=== PATIENT | male | born 1940 | race Caucasian/White ===

== ENCOUNTER → 2018-08-04 | Outpatient (REF) | payer MEDICARE, MEDICAID ==
[2018-08-04 17:17] LABS: ALBUMIN 4.3 GM/DL (3.2-5.2); ALBUMIN/GLOBULIN RATIO 1.43 (1.00-1.93); ALKALINE PHOSPHATASE 57 U/L (45-117); ALT/SGPT 29 U/L (12-78); ANION GAP 8 MEQ/L (8-16); AST/SGOT 21 U/L (7-37); BILIRUBIN,TOTAL 0.9 MG/DL (0.2-1.0); BLOOD UREA NITROGEN 24 MG/DL (7-18); CARBON DIOXIDE LEVEL 25 MEQ/L (21-32); CHLORIDE LEVEL 105 MEQ/L (98-107); CHOLESTEROL LEVEL 104 MG/DL (<200); CREATININE FOR GFR 1.87 MG/DL (0.70-1.30); GLOMERULAR FILTRATION RATE 37.4 (>42); GLUCOSE, FASTING 238 MG/DL (70-100); HDL CHOLESTEROL 37 MG/DL (>40); LDL CHOLESTEROL 38 MG/DL (<100); NON-HDL-C 67 MG/DL; POTASSIUM SERUM 4.4 MEQ/L (3.5-5.1); SODIUM LEVEL 138 MEQ/L (136-145); TOTAL PROTEIN 7.3 GM/DL (6.4-8.2); TRIGLYCERIDES LEVEL 143 MG/DL (<150)
[2018-08-04 17:34] LABS: ESTIMATED AVERAGE GLUCOSE 128 MG/DL (60-110); HEMOGLOBIN A1c 6.1 %
[2018-08-04 18:23] LABS: TOTAL 25(OH) VITAMIN D 25.9 NG/ML (30.0-100.0); VITAMIN B12 LEVEL 440 PG/ML (247-911)
[2018-08-04 18:34] LABS: MALB URINE SIEMENS 48.2 MG/L; MAU/CREAT RATIO 30.5 MCG/MG (0.0-30.0)
[2018-08-05 08:17] LABS: MAGNESIUM LEVEL 1.3 MG/DL (1.8-2.4)
== END ==
LOC: M SFHCCAPE 12:03
DX: R41.3 Other amnesia (principal); E11.8 Type 2 diabetes mellitus with unspecified complications; E78.5 Hyperlipidemia, unspecified; Z79.899 Other long term (current) drug therapy
CPT/HCPCS: 82607; 83735

== ENCOUNTER → 2018-09-23 | Outpatient (REF) | payer MEDICARE, MEDICAID ==
[2018-09-23 17:34] LABS: BASO # 0.1 10^3/uL (0.0-0.2); BASO % 0.8 % (0.0-1.0); EOS # 0.2 10^3/uL (0.0-0.50); EOS % 2.6 % (0.0-3.0); HEMATOCRIT 38.7 % (42.0-52.0); HEMOGLOBIN 13.1 g/dl (13.5-17.5); LYMPH # 1.3 10^3/uL (1.5-4.5); LYMPH % 19.9 % (24.0-44.0); MEAN CORPUSCULAR HEMOGLOBIN 30.9 pg (27.0-33.0); MEAN CORPUSCULAR HGB CONC 33.9 g/dl (32.0-36.5); MEAN CORPUSCULAR VOLUME 91.3 fl (80.0-96.0); MONO # 0.5 10^3/uL (0.0-0.8); MONO % 6.8 % (0.0-5.0); NEUTROPHILS # 4.6 10^3/uL (1.8-7.7); NEUTROPHILS % 69.6 % (36.0-66.0); PLATELET COUNT, AUTOMATED 236 10^3/uL (150-450); RED BLOOD COUNT 4.24 10^6/uL (4.30-6.10); WHITE BLOOD COUNT 6.6 10^3/uL (4.0-10.0)
[2018-09-23 17:38] LABS: ALBUMIN 3.9 GM/DL (3.2-5.2); BILIRUBIN,TOTAL 0.8 MG/DL (0.2-1.0); CALCIUM LEVEL 8.6 MG/DL (8.8-10.2); CREATININE FOR GFR 2.32 MG/DL (0.70-1.30); GLOMERULAR FILTRATION RATE 29.1 (>42); MAGNESIUM LEVEL 1.4 MG/DL (1.8-2.4); POTASSIUM SERUM 4.3 MEQ/L (3.5-5.1)
== END ==
LOC: M SFHCCAPE 09:20
PROVIDERS: ATTEND Physician Assistant
DX: I48.92 Unspecified atrial flutter (principal); E83.42 Hypomagnesemia

== ENCOUNTER → 2018-09-28 | Outpatient (REF) | payer MEDICARE, MEDICAID ==
[2018-09-28 17:26] LABS: ALBUMIN 3.9 GM/DL (3.2-5.2); BILIRUBIN,TOTAL 0.7 MG/DL (0.2-1.0); CREATININE FOR GFR 1.89 MG/DL (0.70-1.30); GLOMERULAR FILTRATION RATE 36.9 (>42); MAGNESIUM LEVEL 1.8 MG/DL (1.8-2.4); POTASSIUM SERUM 4.6 MEQ/L (3.5-5.1); TOTAL PROTEIN 7.3 GM/DL (6.4-8.2)
[2018-09-28 17:28] LABS: BASO % 0.6 % (0.0-1.0); EOS # 0.2 10^3/uL (0.0-0.50); EOS % 2.2 % (0.0-3.0); HEMATOCRIT 39.9 % (42.0-52.0); HEMOGLOBIN 13.8 g/dl (13.5-17.5); LYMPH # 1.2 10^3/uL (1.5-4.5); LYMPH % 16.6 % (24.0-44.0); MEAN CORPUSCULAR HEMOGLOBIN 30.9 pg (27.0-33.0); MEAN CORPUSCULAR HGB CONC 34.6 g/dl (32.0-36.5); MEAN CORPUSCULAR VOLUME 89.5 fl (80.0-96.0); MONO # 0.4 10^3/uL (0.0-0.8); MONO % 5.1 % (0.0-5.0); NEUTROPHILS # 5.2 10^3/uL (1.8-7.7); NEUTROPHILS % 75.4 % (36.0-66.0); PLATELET COUNT, AUTOMATED 226 10^3/uL (150-450); RED BLOOD COUNT 4.46 10^6/uL (4.30-6.10); WHITE BLOOD COUNT 6.9 10^3/uL (4.0-10.0)
== END ==
LOC: M SFHCCAPE 11:17
PROVIDERS: ATTEND Physician Assistant
DX: E83.42 Hypomagnesemia (principal); N18.4 Chronic kidney disease, stage 4 (severe)
CPT/HCPCS: 36415; 80053; 83735; 85025; G0463

== ENCOUNTER 2019-11-09 15:45 | Inpatient (IN) | payer MEDICARE, MEDICAID ==
[~2019-11-09] VITALS: Ht 172.7 cm; Wt 60.6 kg
[2019-11-09 16:53] LABS: INFLUENZA A AMPLIFICATION NEGATIVE (NEGATIVE); INFLUENZA B AMPLIFICATION NEGATIVE (NEGATIVE)
[2019-11-09] MEDS ORDERED: NS 1,000 ML IV ONE (17:45)
[2019-11-09 18:37] LABS: BASO # 0.1 10^3/uL (0.0-0.2); BASO % 0.5 % (0.0-1.0); EOS % 0.4 % (0.0-3.0); HEMATOCRIT 42.9 % (42.0-52.0); HEMOGLOBIN 15.4 g/dl (13.5-17.5); LYMPH # 1.3 10^3/uL (1.5-5.0); LYMPH % 12.6 % (24.0-44.0); MEAN CORPUSCULAR HEMOGLOBIN 31.1 pg (27.0-33.0); MEAN CORPUSCULAR HGB CONC 35.9 g/dl (32.0-36.5); MEAN CORPUSCULAR VOLUME 86.7 fl (80.0-96.0); MONO # 0.9 10^3/uL (0.0-0.8); MONO % 8.3 % (0.0-5.0); NEUTROPHILS # 8.1 10^3/uL (1.5-8.5); NEUTROPHILS % 77.6 % (36.0-66.0); PLATELET COUNT, AUTOMATED 391 10^3/uL (150-450); RED BLOOD COUNT 4.95 10^6/uL (4.30-6.10); WHITE BLOOD COUNT 10.4 10^3/uL (4.0-10.0)
--- NOTE | 2019-11-09 18:38 | REPVR ---
PROCEDURE INFORMATION: Exam: CT Head Without Contrast Exam date and time: 11/09/2019 5:55 PM Age: 79 years old Clinical indication: Altered mental status/memory loss TECHNIQUE: Imaging protocol: Computed tomography of the head without contrast. Radiation optimization: All CT scans at this facility use at least one of these dose optimization techniques: automated exposure control; mA and/or kV adjustment per patient size (includes targeted exams where dose is matched to clinical indication); or iterative reconstruction. COMPARISON: No relevant prior studies available. FINDINGS: Brain: The brain demonstrates diffuse volume loss, in particular temporal lobe volume loss. There is white matter hypodensity most consistent with chronic small vessel ischemic change. No visible evolving territorial infarct. No hemorrhage. Ventricles: The ventricles appear mildly enlarged in keeping with volume loss. Bones/joints: Unremarkable. No acute fracture. Sinuses: Visualized sinuses are unremarkable. No fluid levels. Mastoid air cells: Visualized mastoid air cells are well aerated. Soft tissues: Unremarkable. IMPRESSION: No acute intracranial abnormality seen. Electronically signed by: Kay Dow On 11/09/2019 18:38:21 PM
--- NOTE | 2019-11-09 18:49 | REP ---
CHEST, SINGLE VIEW: There is no evidence of acute infiltrate. No pleural effusion is seen. The heart is normal in size. The mediastinal silhouette is unremarkable. The visualized osseous structures are intact. IMPRESSION: No acute pulmonary disease. Electronically Signed by Ricky Domínguez MD 11/09/2019 08:24 P
[2019-11-09 19:04] LABS: ALBUMIN 3.2 GM/DL (3.2-5.2); ALT/SGPT 15 U/L (12-78); BILIRUBIN,DIRECT 0.5 MG/DL (0.0-0.2); BILIRUBIN,TOTAL 1.3 MG/DL (0.2-1.0); BLOOD UREA NITROGEN 21 MG/DL (7-18); CALCIUM LEVEL 8.9 MG/DL (8.8-10.2); CARBON DIOXIDE LEVEL 26 MEQ/L (21-32); CHLORIDE LEVEL 94 MEQ/L (98-107); CPK CREATINE PHOSPHOKINASE 45 U/L (39-308); CREATININE FOR GFR 1.59 MG/DL (0.70-1.30); GLOMERULAR FILTRATION RATE 44.8 (>35); GLUCOSE, FASTING 324 MG/DL (70-100); MB/CK RELATIVE INDEX 2.22 (< OR =4); POTASSIUM SERUM 3.9 MEQ/L (3.5-5.1); SALICYLATE LEVEL < 1.7 MG/DL (5.0-30.0); SODIUM LEVEL 131 MEQ/L (136-145); TOTAL PROTEIN 7.3 GM/DL (6.4-8.2); TROPONIN I < 0.02 NG/ML (< 0.10)
[2019-11-09 19:05] LABS: ACETAMINOPHEN LEVEL < 2.0 UG/ML (10.0-30.0); ETHYL ALCOHOL (ETHANOL) < 0.003 % (0.000-0.010)
[2019-11-09] MEDS ORDERED: CIPROFLOXACIN 400 MG in IV 1 EA IV ONE (19:30)
[2019-11-09] MEDS ORDERED: MAALOX 30 ML SUSP *UDC PO PRN (20:00)
[2019-11-09] MEDS ORDERED: GLUCOSE 4 GM CHEW TABLET PO PRN (20:00)
[2019-11-09] MEDS ORDERED: NS 1,000 ML IV SCH (20:00)
[2019-11-09] MEDS ORDERED: DEXTROSE 50% 50 ML SYRINGE IV PRN (20:00)
[2019-11-09] MEDS ORDERED: GLUCAGON FOR INJ 1 MG VIAL (J1610) SC PRN (20:00)
--- NOTE | 2019-11-09 20:03 | HPEPDOC ---
[facility] Medical History & Physical Date of Admission Nov 09, 2019 Date of Service: Nov 09, 2019 Attending Physician: SYLVIE SAMANIEGO MD History and Physical TIME OF SERVICE: 8:20 PM CHIEF COMPLAINT: Confusion HISTORY OF PRESENT ILLNESS: This is an 79-year-old male who was brought to the ER by his neighbors because they noticed that he's been more confused than usual. The patient admits to having problems with his memory "for a while". He was unable to answer questions as to why he came to the hospital, did not know the name of the building that we are in, did not know the date, did not know his age, and could not name the president. He reports feeling generally well, and "happy". At the time of my interview he denied having any chest pain, shortness of breath, back pain, abdominal pain, or pain with urination. REVIEW OF SYSTEMS: Unobtainable PAST MEDICAL/ SURGICAL HISTORY: Dementia? Other medical history unobtainable SOCIAL HISTORY: He lives alone. He was born in the [place]. He is not sure if he has family that lives close by FAMILY HISTORY: Unobtainable ALLERGIES: Please see below. HOME MEDICATIONS: Please see below. PHYSICAL EXAMINATION: VITAL SIGNS: Please see below. GEN: well-nourished / well developed/ NAD INTEGUMENT: not flushed/ not jaundice / no rashes / no skin lesions HEENT: NCAT / lips acyanotic /mucus membranes moist and pink CVS: RRR/NMRG LUNGS: able to speak full sentences without stopping to take a breath ABDOMEN: Contour (flat) / soft & not tender with palpation MSK/EXTREMITIES: range of motion intact in all 4 extremities NEURO: CN 2-12 are grossly intact / speech is not dysarthric PSYCH: alert and oriented to person , not place and time/ able to understand and follow all commands LABORATORY DATA: See below. IMAGING: CT head unremarkable. Chest x-ray unremarkable MICROBIOLOGY: Please see below. ASSESSMENT: Mr. Flores is an 79-year-old male with a history of dementia, that was brought by neighbors for evaluation because of worsening confusion; he will be admitted for treatment of a UTI pending social work consult to help us contact his family or determine if he needs placement. PLAN: 1. UTI Because of the patient's memory impairment is difficult to determine he has symptoms associated with a UTI or this is an asymptomatic UTI. He doesn't have any SIRS criteria He received Ciprofloxacin in the ER. Plan: Admit to medical floor/switch to Bactrim 2. Possible dementia Per discussion with the ER staff at one point in time he was agitated and swearing at the staff. During my evaluation he was calm and cooperative. Is un clear if his behaviors due to delirium or frustration. CT of the head was unrevealing. I'm not convinced that his behavior is due to the UTI, hyponatremia or uremia. Plan: Sitter / follow-up TSH, B12, B1, ammonia, / Speech Language consult for cognitive evaluation 3. CHAI vs CKD I'm unsure what his baseline renal function is. He declined IV fluids Plan: Encourage oral intake/follow-up renal ultrasound BMP and urinelytes for FENa 4. Pseudohyponatremia Likely due to hyperglycemia Plan: f/u BMP in AM 5.Hyperglycemia / DM Plan: diabetic diet / f/u accuchecks & A1C / hypoglycemia protocol / sliding scale insulin DVT PROPHYLAXIS: Lovenox DISPOSITION: Possible placement vs home with family after more than 2 midnight's stay Vital Signs Vital Signs Date Time Temp Pulse Resp B/P (MAP) Pulse Ox O2 Delivery O2 Flow Rate FiO2 11/09/19 16:45 77 20 135/87 (103) 99 Room Air 11/09/19 16:01 95.7 Laboratory Data Labs 24H Laboratory Tests 2 11/09/19 16:10: Influenza Type A (RT-PCR) NEGATIVE, Influenza Type B (RT-PCR) NEGATIVE 11/09/19 18:13: Immature Granulocyte % (Auto) 0.6, Neutrophils (%) (Auto) 77.6H, Lymphocytes (%) (Auto) 12.6L, Monocytes (%) (Auto) 8.3H, Eosinophils (%) (Auto) 0.4, Basophils (%) (Auto) 0.5, Neutrophils # (Auto) 8.1, Lymphocytes # (Auto) 1.3L, Monocytes # (Auto) 0.9H, Eosinophils # (Auto) 0.0, Basophils # (Auto) 0.1, Nucleated Red Blood Cells % (auto) 0.0, Urine Color YELLOW, Urine Appearance TURBIDH, Urine pH 6.0, Urine Specific [place] 1.018, Urine Protein 1+H, Urine Glucose (UA) 3+H, Urine Ketones 1+H, Urine Blood 1+H, Urine Nitrite NEGATIVE, Urine Bilirubin NEGATIVE, Urine Urobilinogen 0.2, Urine Leukocyte Esterase 3+H, Urine WBC (Auto) TNTCH, Urine RBC (Auto) 7H, Urine Hyaline Casts (Auto) 0, Urine Bacteria (Auto) 1+H, Urine Squamous Epithelial Cells 0, Urine Mucus (Auto) SMALL, Urine Sperm (Auto) , Anion Gap 11, Glomerular Filtration Rate 44.8, Calcium Level 8.9, Total Bilirubin 1.3H, Direct Bilirubin 0.5H, Aspartate Amino Transf (AST/SGOT) 10, Alanine Aminotransferase (ALT/SGPT) 15, Alkaline Phosphatase 139H, Ammonia < 10, Total Creatine Kinase 45, Creatine Kinase MB 1.0, Creatine Kinase MB Relative Index 2.22, Troponin I < 0.02, Total Protein 7.3, Albumin 3.2, Albumin/Globulin Ratio 0.78L, Thyroid Stimulating Hormone (TSH) 1.000, Salicylates Level < 1.7L, Acetaminophen Level < 2.0L, Ethyl Alcohol Level < 0.003 CBC/BMP Laboratory Tests 11/09/19 18:13 Microbiology Microbiology 11/09/19 Urine Culture, Received Pending Home Medications No Active Prescriptions or Reported Meds Allergies Coded Allergies: No Known Allergies (Unverified , 11/09/19) A-FIB/CHADSVASC A-FIB History Current/History of A-Fib/PAF?: No Current PO Anticoag Therapy: No SYLVIE SAMANIEGO MD Nov 09, 2019 20:03
[2019-11-09] MEDS ORDERED: HumaLOG INSULIN (NovoLOG) PER UNIT SC SCH (21:00)
[2019-11-09 21:34] LABS: HEMOGLOBIN A1c 10.9 %
--- NOTE | 2019-11-09 21:38 | REPVR ---
PROCEDURE INFORMATION: Exam: US Retroperitoneal Limited, Kidneys Exam date and time: 11/09/2019 8:54 PM Age: 79 years old Clinical indication: Abnormal findings; Abnormal lab test; Abnormal kidney function lab tests; Additional info: [place] TECHNIQUE: Imaging protocol: Real-time ultrasound of the retroperitoneum with image documentation. Examination was focused on the kidneys. COMPARISON: No relevant prior studies available. FINDINGS: Right kidney: Right kidney measures 12.5 cm. Renal cortical thickness is normal. Renal cortex is echogenic. 1.3 cm complex cyst in the mid right kidney. 5.3 x 3.4 x 2.6 cm complicated cyst in the lower pole of the right kidney. Solid vascular mass in the upper pole of the right kidney measuring 4.4 x 4.3 x 4.4 cm. No hydronephrosis. Left kidney: Left kidney measures 11.1 cm. Normal cortical thickness and echotexture. Calyceal stone in the left renal lower pole measuring 2.1 cm. No hydronephrosis or masses. Bladder: Echogenic debris in the urinary bladder. Urinary bladder wall appears mildly thickened. Oval nodular structure with posterior acoustic shadowing in the urinary bladder measuring 4.6 x 4.3 x 3.1 cm. IMPRESSION: 1. Solid mass in the upper pole of the right kidney concerning for renal neoplasm. Renal CT or MRI follow-up is recommended. Additional small cysts in the right kidney. 2. Nonobstructing calyceal stones in the lower pole of the left kidney. No hydronephrosis. 3. Probable calculus in the urinary bladder with some layering debris in the bladder lumen. 4. Mildly echogenic right kidney suggesting chronic medical renal disease. Electronically signed by: Varun Mojica On 11/09/2019 21:37:45 PM
[2019-11-09 23:10] VITALS: BP 128/76
[2019-11-09] MEDS: BACTRIM 160MG/800MG DS TAB PO SCH (23:34)
[2019-11-09] MEDS: DOCUSATE SODIUM 100 MG CAP PO SCH (23:34)
[2019-11-10 02:00] VITALS: BP 120/68
[2019-11-10 06:00] VITALS: BP 122/67
[2019-11-10 07:19] LABS: HEMATOCRIT 38.5 % (42.0-52.0); HEMOGLOBIN 13.8 g/dl (13.5-17.5); MEAN CORPUSCULAR HGB CONC 35.8 g/dl (32.0-36.5); MEAN CORPUSCULAR VOLUME 86.5 fl (80.0-96.0); PLATELET COUNT, AUTOMATED 336 10^3/uL (150-450); RED BLOOD COUNT 4.45 10^6/uL (4.30-6.10); WHITE BLOOD COUNT 10.7 10^3/uL (4.0-10.0)
[2019-11-10] MEDS ORDERED: HumaLOG INSULIN (NovoLOG) PER UNIT SC SCH ×3 (07:30→21:00)
[2019-11-10] MEDS: HumaLOG INSULIN (NovoLOG) PER UNIT SC SCH ×4 (07:30→20:11)
[2019-11-10 07:55] LABS: CALCIUM LEVEL 8.2 MG/DL (8.8-10.2); CREATININE FOR GFR 1.42 MG/DL (0.70-1.30); GLOMERULAR FILTRATION RATE 51.1 (>35); POTASSIUM SERUM 3.9 MEQ/L (3.5-5.1); THYROID STIMULATING HORMONE 0.961 uIU/ML (0.358-3.740)
[2019-11-10] MEDS ORDERED: CIPROFLOXACIN 400 MG in IV 1 EA IV ONE (08:00)
--- NOTE | 2019-11-10 08:11 | ECGEPIP ---
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
[2019-11-10] MEDS: BACTRIM 160MG/800MG DS TAB PO SCH ×2 (09:26→20:11)
[2019-11-10] MEDS: ENOXAPARIN 40 MG/0.4 ML SYRINGE (J1650) SC SCH (09:26)
[2019-11-10] MEDS: DOCUSATE SODIUM 100 MG CAP PO SCH ×2 (09:26→20:11)
[2019-11-10 10:00] VITALS: BP 123/66
--- NOTE | 2019-11-10 11:39 | IPNPDOC ---
Subjective Date Seen The patient was seen on 11/10/19. Subjective Chief Complaint/HPI Resting in bed, and eating breakfast. No complaints, does not seem confused during our conversation. Objective Physical Examination General Exam: Positive: Alert, Cooperative, No Acute Distress Eye Exam: Positive: PERRLA, Conjunctiva & lids normal, EOMI; Negative: Sclera icteric ENT Exam: Positive: Atraumatic Neck Exam: Positive: Supple, +2 carotid pulse wo bruit; Negative: JVD, thyromegaly Chest Exam: Positive: Clear to auscultation Abdomen Exam: Positive: Normal bowel sounds Extremity Exam: Negative: Clubbing, Cyanosis, Edema Neuro Exam: Positive: Normal Speech Psych Exam: Positive: Mood NL Assessment /Plan Assessment # Altered mental status due to UTI - continue bactrim x 48 more hours - await culture # Dementia - d/w PFS patient fragoso have hx of dementia - b12, tsh normal, B1 level pending - may consider MRI brain to r/o mets given finding of renal mass # CKD stage 3 - creat looks to be w/i his historical range - avoid nephrotoxins # Right renal mass noted on Renal ULS - MRI abd/pelvis today # Poorly controlled DM type 2 - continue NovoLog SS - start Levemir 10 units qhs Dispo: needs placement, PFS aware Plan/VTE VTE Prophylaxis Ordered?: Yes (lovenox) VTE Exclusion Mechanical Proph: N/A:VTE Prophy Ordered VTE Exclusion Pharmacological: N/A:VTE Prophy Ordered VS, I&O, 24H, Fishbone Vital Signs/I&O Vital Signs Date Time Temp Pulse Resp B/P (MAP) Pulse Ox O2 Delivery O2 Flow Rate FiO2 11/10/19 10:00 98.3 69 18 123/66 (85) 98 Room Air I&O- Last 24 Hours up to 6 AM 11/10/19 06:00 Intake Total 1550 ml Output Total 150 ml Balance 1400 ml Laboratory Data 24H LABS Laboratory Tests 2 11/09/19 16:10: Influenza Type A (RT-PCR) NEGATIVE, Influenza Type B (RT-PCR) NEGATIVE 11/09/19 18:13: Immature Granulocyte % (Auto) 0.6, Neutrophils (%) (Auto) 77.6H, Lymphocytes (%) (Auto) 12.6L, Monocytes (%) (Auto) 8.3H, Eosinophils (%) (Auto) 0.4, Basophils (%) (Auto) 0.5, Neutrophils # (Auto) 8.1, Lymphocytes # (Auto) 1.3L, Monocytes # (Auto) 0.9H, Eosinophils # (Auto) 0.0, Basophils # (Auto) 0.1, Nucleated Red Blood Cells % (auto) 0.0, Urine Color YELLOW, Urine Appearance TURBIDH, Urine pH 6.0, Urine Specific [place] 1.018, Urine Protein 1+H, Urine Glucose (UA) 3+H, Urine Ketones 1+H, Urine Blood 1+H, Urine Nitrite NEGATIVE, Urine Bilirubin NEGATIVE, Urine Urobilinogen 0.2, Urine Leukocyte Esterase 3+H, Urine WBC (Auto) TNTCH, Urine RBC (Auto) 7H, Urine Hyaline Casts (Auto) 0, Urine Bacteria (Auto) 1+H, Urine Squamous Epithelial Cells 0, Urine Mucus (Auto) SMALL, Urine Sperm (Auto) , Anion Gap 11, Glomerular Filtration Rate 44.8, Calcium Level 8.9, Total Bilirubin 1.3H, Direct Bilirubin 0.5H, Aspartate Amino Transf (AST/SGOT) 10, Alanine Aminotransferase (ALT/SGPT) 15, Alkaline Phosphatase 139H, Ammonia < 10, Total Creatine Kinase 45, Creatine Kinase MB 1.0, Creatine Kinase MB Relative Index 2.22, Troponin I < 0.02, Total Protein 7.3, Albumin 3.2, Albumin/Globulin Ratio 0.78L, Thyroid Stimulating Hormone (TSH) 1.000, Salicylates Level < 1.7L, Acetaminophen Level < 2.0L, Ethyl Alcohol Level < 0.003 11/09/19 18:16: Estimated Mean Plasma Glucose 266H, Hemoglobin A1c 10.9 11/09/19 21:55: Ammonia < 10 11/10/19 07:02: Nucleated Red Blood Cells % (auto) 0.0, Anion Gap 7L, Glomerular Filtration Rate 51.1, Calcium Level 8.2L, Vitamin B12 Level 723, Thyroid Stimulating Hormone (TSH) 0.961 CBC/BMP Laboratory Tests 11/09/19 18:13 11/10/19 07:02 Microbiology Microbiology 11/09/19 Urine Culture, Received Pending SHANTHI HERMOSILLO MD Nov 10, 2019 11:39
[2019-11-10 14:00] VITALS: BP 120/65
[2019-11-10] MEDS: LEVEMIR (INSULIN DETEMIR) 1 UNITS/0.01ML SC SCH (20:11)
[2019-11-10 20:40] VITALS: BP 120/62
[2019-11-10] MEDS: ACETAMINOPHEN TAB 650MG DOSE (2X325MG) PO PRN (20:51)
[2019-11-11 06:40] VITALS: BP 119/60
[2019-11-11] MEDS: DOCUSATE SODIUM 100 MG CAP PO SCH ×2 (08:53→21:06)
[2019-11-11] MEDS: HumaLOG INSULIN (NovoLOG) PER UNIT SC SCH ×4 (08:53→21:07)
[2019-11-11] MEDS: BACTRIM 160MG/800MG DS TAB PO SCH ×2 (08:53→21:06)
[2019-11-11] MEDS: ENOXAPARIN 40 MG/0.4 ML SYRINGE (J1650) SC SCH (08:53)
[2019-11-11 14:00] VITALS: BP 119/62
--- NOTE | 2019-11-11 16:14 | IPNPDOC ---
Subjective Date Seen The patient was seen on 11/11/19. Subjective Chief Complaint/HPI Patient oriented to self only. Objective Physical Examination General Exam: Positive: Alert, Cooperative, No Acute Distress Eye Exam: Positive: PERRLA, EOMI; Negative: Sclera icteric ENT Exam: Positive: Mucous membr. moist/pink Neck Exam: Positive: Supple; Negative: JVD, thyromegaly Chest Exam: Positive: Clear to auscultation Abdomen Exam: Positive: Normal bowel sounds Extremity Exam: Negative: Clubbing, Cyanosis, Edema Neuro Exam: Positive: Normal Speech Psych Exam: Positive: Mood NL Assessment /Plan Assessment # Altered mental status due to UTI - continue bactrim x 48 more hours - await culture # Dementia - d/w PFS patient fragoso have hx of dementia - b12, tsh normal, B1 level pending - unable to do MRI because patient can not fill MRI pre-screen form due to dementia # CKD stage 3 - creat looks to be w/i his historical range - avoid nephrotoxins # Right renal mass noted on Renal ULS - cancelled MRI abd/pelvis # Poorly controlled DM type 2 - continue NovoLog SS - start Levemir 10 units qhs Dispo: needs placement Plan/VTE VTE Prophylaxis Ordered?: Yes (lovenox) VTE Exclusion Mechanical Proph: N/A:VTE Prophy Ordered VTE Exclusion Pharmacological: N/A:VTE Prophy Ordered VS, I&O, 24H, Fishbone Vital Signs/I&O Vital Signs Date Time Temp Pulse Resp B/P (MAP) Pulse Ox O2 Delivery O2 Flow Rate FiO2 11/11/19 06:40 98.3 63 17 119/60 (79) 96 Room Air I&O- Last 24 Hours up to 6 AM 11/11/19 06:00 Intake Total 3192 ml Output Total 150 ml Balance 3042 ml Laboratory Data 24H LABS Laboratory Tests 2 11/10/19 16:41: Bedside Glucose (Misc Panel) 116H 11/10/19 20:06: Bedside Glucose (Misc Panel) 234H 11/11/19 06:42: Bedside Glucose (Misc Panel) 126H 11/11/19 11:48: Bedside Glucose (Misc Panel) 292H Microbiology Microbiology 11/09/19 Urine Culture, Received Pending SHANTHI HERMOSILLO MD Nov 11, 2019 16:14
[2019-11-11] MEDS: ACETAMINOPHEN TAB 650MG DOSE (2X325MG) PO PRN (21:07)
[2019-11-11] MEDS: LEVEMIR (INSULIN DETEMIR) 1 UNITS/0.01ML SC SCH (21:07)
[2019-11-11 22:00] VITALS: BP 120/63
[2019-11-12 02:00] VITALS: BP 111/59
[2019-11-12 05:40] VITALS: BP 119/60
[2019-11-12] MEDS: HumaLOG INSULIN (NovoLOG) PER UNIT SC SCH ×4 (07:30→21:25)
[2019-11-12 08:43] LABS: HEMATOCRIT 34.8 % (42.0-52.0); HEMOGLOBIN 12.1 g/dl (13.5-17.5); MEAN CORPUSCULAR HEMOGLOBIN 30.3 pg (27.0-33.0); MEAN CORPUSCULAR HGB CONC 34.8 g/dl (32.0-36.5); MEAN CORPUSCULAR VOLUME 87.2 fl (80.0-96.0); PLATELET COUNT, AUTOMATED 299 10^3/uL (150-450); RED BLOOD COUNT 3.99 10^6/uL (4.30-6.10); WHITE BLOOD COUNT 10.2 10^3/uL (4.0-10.0)
[2019-11-12 09:03] LABS: CALCIUM LEVEL 7.9 MG/DL (8.8-10.2); CREATININE FOR GFR 1.55 MG/DL (0.70-1.30); GLOMERULAR FILTRATION RATE 46.2 (>35); POTASSIUM SERUM 3.9 MEQ/L (3.5-5.1)
--- NOTE | 2019-11-12 11:36 | IPNPDOC ---
Subjective Date Seen The patient was seen on 11/12/19. Subjective Chief Complaint/HPI Marco is pleasant and remains demented Objective Physical Examination General Exam: Positive: Alert, Cooperative, No Acute Distress Eye Exam: Positive: PERRLA; Negative: Sclera icteric ENT Exam: Positive: Mucous membr. moist/pink Neck Exam: Positive: Supple; Negative: JVD, thyromegaly Chest Exam: Positive: Clear to auscultation Abdomen Exam: Positive: Normal bowel sounds Extremity Exam: Negative: Clubbing, Cyanosis, Edema Neuro Exam: Positive: Normal Speech Psych Exam: Positive: Mood NL, Other (oriented to self only) Assessment /Plan Assessment # Altered mental status due to UTI - continue bactrim x 48 more hours - await culture # UTI (Strep Gallolyticus) - change to augmentin - will need colonoscopy to r/o colon cancer based on organism isolated # Dementia - d/w PFS patient fragoso have hx of dementia - b12, tsh normal, B1 level pending - unable to do MRI because patient can not fill MRI pre-screen form due to dementia # CKD stage 3 - creat looks to be w/i his historical range - avoid nephrotoxins # Right renal mass noted on Renal ULS - cancelled MRI abd/pelvis # Poorly controlled DM type 2 - continue NovoLog SS - start Levemir 10 units qhs Dispo: needs placement Plan/VTE VTE Prophylaxis Ordered?: Yes (lovenox) VTE Exclusion Mechanical Proph: N/A:VTE Prophy Ordered VTE Exclusion Pharmacological: N/A:VTE Prophy Ordered VS, I&O, 24H, Fishbone Vital Signs/I&O Vital Signs Date Time Temp Pulse Resp B/P (MAP) Pulse Ox O2 Delivery O2 Flow Rate FiO2 11/12/19 05:40 98.1 63 16 119/60 (79) 99 Room Air I&O- Last 24 Hours up to 6 AM 11/12/19 06:00 Intake Total 1780 ml Balance 1780 ml Laboratory Data 24H LABS Laboratory Tests 2 11/11/19 11:48: Bedside Glucose (Misc Panel) 292H 11/11/19 16:37: Bedside Glucose (Misc Panel) 201H 11/11/19 20:24: Bedside Glucose (Misc Panel) 261H 11/12/19 06:38: Bedside Glucose (Misc Panel) 129H 2/28/20 08:28: Nucleated Red Blood Cells % (auto) 0.0, Anion Gap 6L, Glomerular Filtration Rate 46.2, Calcium Level 7.9L CBC/BMP Laboratory Tests 11/12/19 08:28 Microbiology Microbiology 11/09/19 Urine Culture - Final, Complete Strep Gallolyticus Ssp SHANTHI Muller MD Nov 12, 2019 11:36
[2019-11-12] MEDS: AUGMENTIN 500 MG TAB PO SCH ×2 (12:34→21:24)
[2019-11-12] MEDS: DOCUSATE SODIUM 100 MG CAP PO SCH ×2 (12:34→21:24)
[2019-11-12] MEDS: ENOXAPARIN 40 MG/0.4 ML SYRINGE (J1650) SC SCH (12:35)
[2019-11-12 14:00] VITALS: BP 118/62
[2019-11-12 20:20] VITALS: BP 115/50
[2019-11-12] MEDS: LEVEMIR (INSULIN DETEMIR) 1 UNITS/0.01ML SC SCH (21:25)
[2019-11-12] MEDS: ACETAMINOPHEN TAB 650MG DOSE (2X325MG) PO PRN (21:25)
[2019-11-13 06:48] VITALS: BP 117/60
[2019-11-13 07:16] LABS: CALCIUM LEVEL 8.7 MG/DL (8.8-10.2); CREATININE FOR GFR 1.33 MG/DL (0.70-1.30); GLOMERULAR FILTRATION RATE 55.1 (>35); POTASSIUM SERUM 3.9 MEQ/L (3.5-5.1)
[2019-11-13] MEDS: HumaLOG INSULIN (NovoLOG) PER UNIT SC SCH ×4 (07:30→20:32)
[2019-11-13] MEDS: ENOXAPARIN 40 MG/0.4 ML SYRINGE (J1650) SC SCH (08:34)
[2019-11-13] MEDS: DOCUSATE SODIUM 100 MG CAP PO SCH ×2 (08:34→20:32)
[2019-11-13] MEDS: AUGMENTIN 500 MG TAB PO SCH ×2 (08:35→20:32)
--- NOTE | 2019-11-13 10:19 | IPNPDOC ---
Subjective Date Seen The patient was seen on 11/13/19. Subjective Chief Complaint/HPI Sitter at bedside. Marco is pleasant this morning, no complaints. Objective Physical Examination General Exam: Positive: No Acute Distress Eye Exam: Positive: PERRLA; Negative: Sclera icteric ENT Exam: Positive: Mucous membr. moist/pink Neck Exam: Positive: Supple; Negative: JVD, thyromegaly Chest Exam: Positive: Clear to auscultation Heart Exam: Positive: Rate Normal, Normal S1, Normal S2 Abdomen Exam: Positive: Normal bowel sounds Extremity Exam: Negative: Clubbing, Cyanosis, Edema Neuro Exam: Positive: Normal Speech Psych Exam: Positive: Mood NL, Other (oriented to self only) Assessment /Plan Assessment # Altered mental status due to UTI - resolved, but has underlying dementia # UTI (Strep Gallolyticus) - change to augmentin - will not need colonoscopy to r/o colon cancer as the organism is only located in the urine # Dementia - d/w PFS patient does have hx of dementia - b12, tsh normal, B1 level pending - unable to do MRI because patient can not fill MRI pre-screen form due to dementia # CKD stage 3 - creat looks to be w/i his historical range - avoid nephrotoxins # Right renal mass noted on Renal ULS - cancelled MRI abd/pelvis # Poorly controlled DM type 2 - continue NovoLog SS - increase Levemir 15 units qhs Dispo: needs placement Plan/VTE VTE Prophylaxis Ordered?: Yes (lovenox) VTE Exclusion Mechanical Proph: N/A:VTE Prophy Ordered VTE Exclusion Pharmacological: N/A:VTE Prophy Ordered VS, I&O, 24H, Fishbone Vital Signs/I&O Vital Signs Date Time Temp Pulse Resp B/P (MAP) Pulse Ox O2 Delivery O2 Flow Rate FiO2 11/13/19 06:48 98.1 56 20 117/60 (79) 96 Room Air I&O- Last 24 Hours up to 6 AM 11/13/19 06:00 Intake Total 870 ml Output Total 200 ml Balance 670 ml Laboratory Data 24H LABS Laboratory Tests 2 11/12/19 11:38: Bedside Glucose (Misc Panel) 344H 11/12/19 17:24: Bedside Glucose (Misc Panel) 249H 11/12/19 20:23: Bedside Glucose (Misc Panel) 252H 11/13/19 06:39: Anion Gap 6L, Glomerular Filtration Rate 55.1, Calcium Level 8.7L 11/13/19 08:47: Bedside Glucose (Misc Panel) 243H CBC/BMP Laboratory Tests 11/13/19 06:39 Microbiology Microbiology 11/09/19 Urine Culture - Final, Complete Strep Gallolyticus Ssp Joseu SHANTHI HERMOSILLO MD Nov 13, 2019 10:19
[2019-11-13 14:00] VITALS: BP 135/56
[2019-11-13] MEDS: ACETAMINOPHEN TAB 650MG DOSE (2X325MG) PO PRN (14:52)
[2019-11-13 19:58] VITALS: BP 132/57
[2019-11-13] MEDS ORDERED: LEVEMIR (INSULIN DETEMIR) 1 UNITS/0.01ML SC SCH (21:00)
[2019-11-14 06:23] VITALS: BP 118/48
[2019-11-14 07:21] LABS: CALCIUM LEVEL 8.3 MG/DL (8.8-10.2); CREATININE FOR GFR 1.35 MG/DL (0.70-1.30); GLOMERULAR FILTRATION RATE 54.1 (>35); POTASSIUM SERUM 4.6 MEQ/L (3.5-5.1)
[2019-11-14 07:28] LABS: HEMATOCRIT 38.5 % (42.0-52.0); HEMOGLOBIN 13.4 g/dl (13.5-17.5); MEAN CORPUSCULAR HEMOGLOBIN 30.7 pg (27.0-33.0); MEAN CORPUSCULAR HGB CONC 34.8 g/dl (32.0-36.5); MEAN CORPUSCULAR VOLUME 88.3 fl (80.0-96.0); PLATELET COUNT, AUTOMATED 359 10^3/uL (150-450); RED BLOOD COUNT 4.36 10^6/uL (4.30-6.10); WHITE BLOOD COUNT 12.1 10^3/uL (4.0-10.0)
[2019-11-14] MEDS: HumaLOG INSULIN (NovoLOG) PER UNIT SC SCH ×4 (07:30→21:49)
[2019-11-14] MEDS: DOCUSATE SODIUM 100 MG CAP PO SCH ×2 (08:10→21:49)
[2019-11-14] MEDS: AUGMENTIN 500 MG TAB PO SCH ×2 (08:10→21:49)
[2019-11-14] MEDS: ENOXAPARIN 40 MG/0.4 ML SYRINGE (J1650) SC SCH (08:10)
--- NOTE | 2019-11-14 10:26 | IPNPDOC ---
Subjective Date Seen The patient was seen on 11/14/19. Subjective Chief Complaint/HPI Marco is fine this morning. Temp of 100.3 last night despite abx therapy. afebrile this am, wbc slightly elevated this morning. Objective Physical Examination General Exam: Positive: No Acute Distress Eye Exam: Positive: PERRLA; Negative: Sclera icteric ENT Exam: Positive: Pharynx Normal, Nares Patent, Pinna Normal; Negative: Pharyngeal Edema Neck Exam: Positive: Supple; Negative: JVD, thyromegaly Chest Exam: Positive: Clear to auscultation Heart Exam: Positive: Rate Normal, Normal S1, Normal S2 Abdomen Exam: Positive: Normal bowel sounds Extremity Exam: Negative: Clubbing, Cyanosis, Edema Skin Exam: Positive: Nl turgor and temperature; Negative: Rash Neuro Exam: Positive: Normal Speech Psych Exam: Positive: Mood NL, Other (oriented to self only) Assessment /Plan Assessment # Altered mental status due to UTI - resolved, but has underlying dementia # Fever - check blood cx - ? if tumor fever associated with renal mass # UTI (Strep Gallolyticus) - augmentin day # 11/17 - will not need colonoscopy to r/o colon cancer as the organism is only located in the urine # Dementia - d/w PFS patient does have hx of dementia - b12, tsh normal, B1 level pending - unable to do MRI because patient can not fill MRI pre-screen form due to dementia # CKD stage 3 - creat looks to be w/i his historical range - avoid nephrotoxins # Right renal mass noted on Renal ULS - cancelled MRI abd/pelvis # Poorly controlled DM type 2 - continue NovoLog SS - increase Levemir 15 units qhs Dispo: needs placement Plan/VTE VTE Prophylaxis Ordered?: Yes (lovenox) VTE Exclusion Mechanical Proph: N/A:VTE Prophy Ordered VTE Exclusion Pharmacological: N/A:VTE Prophy Ordered VS, I&O, 24H, Fishbone Vital Signs/I&O Vital Signs Date Time Temp Pulse Resp B/P (MAP) Pulse Ox O2 Delivery O2 Flow Rate FiO2 11/14/19 06:23 99.1 59 20 118/48 (71) 96 Room Air I&O- Last 24 Hours up to 6 AM 11/14/19 06:00 Intake Total 2736 ml Output Total 0 ml Balance 2736 ml Laboratory Data 24H LABS Laboratory Tests 2 11/13/19 11:32: Bedside Glucose (Misc Panel) 280H 11/13/19 16:43: Bedside Glucose (Misc Panel) 266H 11/13/19 20:25: Bedside Glucose (Misc Panel) 228H 11/14/19 06:29: Nucleated Red Blood Cells % (auto) 0.0, Anion Gap 7L, Glomerular Filtration Rate 54.1, Calcium Level 8.3L CBC/BMP Laboratory Tests 11/14/19 06:29 Microbiology Microbiology 11/09/19 Urine Culture - Final, Complete Strep Gallolyticus Ssp SHANTHI Muller MD Nov 14, 2019 10:26
[2019-11-14 14:00] VITALS: BP 133/66
[2019-11-14 20:36] VITALS: BP 152/72
[2019-11-14] MEDS: TAMSULOSIN 0.4 MG CAP PO SCH (21:49)
[2019-11-14] MEDS: LEVEMIR (INSULIN DETEMIR) 1 UNITS/0.01ML SC SCH (21:50)
[2019-11-15 06:23] LABS: HEMATOCRIT 37.8 % (42.0-52.0); HEMOGLOBIN 13.2 g/dl (13.5-17.5); MEAN CORPUSCULAR HEMOGLOBIN 31.1 pg (27.0-33.0); MEAN CORPUSCULAR HGB CONC 34.9 g/dl (32.0-36.5); MEAN CORPUSCULAR VOLUME 88.9 fl (80.0-96.0); PLATELET COUNT, AUTOMATED 325 10^3/uL (150-450); RED BLOOD COUNT 4.25 10^6/uL (4.30-6.10); WHITE BLOOD COUNT 9.7 10^3/uL (4.0-10.0)
[2019-11-15 06:39] VITALS: BP 126/62
[2019-11-15 06:45] LABS: BLOOD UREA NITROGEN 22 MG/DL (7-18); CALCIUM LEVEL 9.3 MG/DL (8.8-10.2); CARBON DIOXIDE LEVEL 26 MEQ/L (21-32); CHLORIDE LEVEL 102 MEQ/L (98-107); CREATININE FOR GFR 1.13 MG/DL (0.70-1.30); GLOMERULAR FILTRATION RATE > 60.0 (>35); GLUCOSE, FASTING 91 MG/DL (70-100); POTASSIUM SERUM 3.8 MEQ/L (3.5-5.1); SODIUM LEVEL 133 MEQ/L (136-145)
[2019-11-15] MEDS: HumaLOG INSULIN (NovoLOG) PER UNIT SC SCH ×4 (07:30→21:50)
[2019-11-15] MEDS: AUGMENTIN 500 MG TAB PO SCH ×2 (08:53→21:50)
[2019-11-15] MEDS: ENOXAPARIN 40 MG/0.4 ML SYRINGE (J1650) SC SCH (08:54)
[2019-11-15] MEDS: DOCUSATE SODIUM 100 MG CAP PO SCH ×2 (08:54→21:51)
[2019-11-15] MEDS ORDERED: DEXTROMETHORPHAN 60MG/10ML SUSP 90ML BTL(DELSYM) PO PRN (10:30)
--- NOTE | 2019-11-15 10:56 | IPNPDOC ---
Subjective Date Seen The patient was seen on 11/15/19. Subjective Chief Complaint/HPI Urine retention last night requiring straight cath, and started on flomax. Denies any suprapubic pain this morning Objective Physical Examination General Exam: Positive: No Acute Distress Eye Exam: Negative: Sclera icteric ENT Exam: Positive: Pharynx Normal, Nares Patent, Pinna Normal; Negative: Pharyngeal Edema Neck Exam: Positive: Supple; Negative: JVD, thyromegaly Chest Exam: Positive: Clear to auscultation Heart Exam: Positive: Rate Normal, Normal S1, Normal S2 Abdomen Exam: Positive: Normal bowel sounds Male Exam: Positive: Tenderness (no suprapubic) Extremity Exam: Negative: Clubbing, Cyanosis, Edema Skin Exam: Positive: Nl turgor and temperature; Negative: Rash Neuro Exam: Positive: Normal Speech Psych Exam: Positive: Mood NL, Other (oriented to self only) Assessment /Plan Assessment # Altered mental status due to UTI - resolved, but has underlying dementia # Urine Retention - flomax, straight cath prn - urology f/u as outpatient # Fever - blood cx no growth to date - ? if tumor fever associated with renal mass # UTI (Strep Gallolyticus) - augmentin day # 4/5 - will not need colonoscopy to r/o colon cancer as the organism is only located in the urine # Dementia - d/w PFS patient does have hx of dementia - b12, tsh normal, B1 level normal - unable to do MRI because patient can not fill MRI pre-screen form due to dementia # CKD stage 3 - creat looks to be w/i his historical range - avoid nephrotoxins # Right renal mass noted on Renal ULS - cancelled MRI abd/pelvis # Poorly controlled DM type 2 - continue NovoLog SS - added Levemir 15 units qhs - BG improved # Chronic a fib rate controlled - eliquis 2.5 mg po bid Dispo: needs placement and will likely need guardianship, change to ALC status Plan/VTE VTE Prophylaxis Ordered?: Yes (lovenox) VTE Exclusion Mechanical Proph: N/A:VTE Prophy Ordered VTE Exclusion Pharmacological: N/A:VTE Prophy Ordered VS, I&O, 24H, Fishbone Vital Signs/I&O Vital Signs Date Time Temp Pulse Resp B/P (MAP) Pulse Ox O2 Delivery O2 Flow Rate FiO2 11/15/19 06:39 97.9 56 18 126/62 (83) 96 Room Air I&O- Last 24 Hours up to 6 AM 11/15/19 06:00 Intake Total 1900 ml Output Total 450 ml Balance 1450 ml Laboratory Data 24H LABS Laboratory Tests 2 11/14/19 11:31: Bedside Glucose (Misc Panel) 344H 11/14/19 17:13: Bedside Glucose (Misc Panel) 255H 11/14/19 20:38: Bedside Glucose (Misc Panel) 263H 11/15/19 05:56: Nucleated Red Blood Cells % (auto) 0.0, Anion Gap 5L, Glomerular Filtration Rate > 60.0, Calcium Level 9.3 CBC/BMP Laboratory Tests 11/15/19 05:56 Microbiology Microbiology 11/14/19 Blood Culture, Received Pending 11/09/19 Urine Culture - Final, Complete Strep Gallolyticus Ssp SHANTHI Muller MD Nov 15, 2019 10:38
[2019-11-15 14:00] VITALS: BP 133/67
[2019-11-15] MEDS: APIXABAN 2.5 MG TAB (ELIQUIS) PO SCH (21:51)
[2019-11-15] MEDS: TAMSULOSIN 0.4 MG CAP PO SCH (21:51)
[2019-11-15] MEDS: LEVEMIR (INSULIN DETEMIR) 1 UNITS/0.01ML SC SCH (21:51)
[2019-11-16] MEDS: ACETAMINOPHEN TAB 650MG DOSE (2X325MG) PO PRN (02:03)
[2019-11-16 04:03] LABS: HEMATOCRIT 36.6 % (42.0-52.0); HEMOGLOBIN 12.7 g/dl (13.5-17.5); MEAN CORPUSCULAR HEMOGLOBIN 30.4 pg (27.0-33.0); MEAN CORPUSCULAR HGB CONC 34.7 g/dl (32.0-36.5); MEAN CORPUSCULAR VOLUME 87.6 fl (80.0-96.0); PLATELET COUNT, AUTOMATED 352 10^3/uL (150-450); RED BLOOD COUNT 4.18 10^6/uL (4.30-6.10); WHITE BLOOD COUNT 9.7 10^3/uL (4.0-10.0)
--- NOTE | 2019-11-16 04:18 | REPVR ---
PROCEDURE INFORMATION: Exam: CT Abdomen And Pelvis Without Contrast Exam date and time: 11/16/2019 3:09 AM Age: 79 years old Clinical indication: Abdominal pain; Localized; Left lower quadrant (llq); Additional info: Left scrotal swelling, pain TECHNIQUE: Imaging protocol: Computed tomography of the abdomen and pelvis without contrast. Radiation optimization: All CT scans at this facility use at least one of these dose optimization techniques: automated exposure control; mA and/or kV adjustment per patient size (includes targeted exams where dose is matched to clinical indication); or iterative reconstruction. COMPARISON: RENAL US 11/09/2019 8:33 PM FINDINGS: Liver: Normal. No mass. Gallbladder and bile ducts: Large irregular gallstones in the gallbladder which is contracted. Pancreas: Minimal pancreatic calcifications. Spleen: Splenic cyst measuring 12 mm. Adrenals: Normal. No mass. Kidneys and ureters: Large non-obstructing left renal calculus or calculi in the lower pole measuring up to 18 mm. There are right renal cysts measuring up to 4.5 cm. Inhomogeneous mass in the upper pole of the right kidney measuring approximately 5.3 x 5.1 x 4.1 cm which is suspicious for renal cell carcinoma. Stomach and bowel: Colonic diverticulosis without diverticulitis. Appendix: Question of partial visualization of a normal appendix. Intraperitoneal space: Unremarkable. No free air. No significant fluid collection. Vasculature: Unremarkable. No abdominal aortic aneurysm. Lymph nodes: Unremarkable. No enlarged lymph nodes. Bladder: Large laminated bladder calculus measuring 4.2 x 3.3 x 2.4 cm. Bladder wall thickening with intraluminal bladder gas. Reproductive: There is mild prostatic enlargement. Bones/joints: Degenerative disc change of the lumbar spine with some facet arthropathy. Soft tissues: Enlarged left psoas muscle with surrounding induration and low-attenuation centrally which may reflect left psoas hematoma or abscess. The psoas is confluent with the left kidney. Surrounding induration extends caudally to the left inguinal canal. Sites of previous injection in the anterior abdominal wall. Large left inguinal hernia extending into the scrotum containing much of the sigmoid colon. IMPRESSION: 1. Solid-appearing mass of the upper pole of the right kidney suspicious for renal cell carcinoma. 2. Cholelithiasis. 3. Large non-obstructing left renal calculus or calculi in the lower pole. 4. Enlarged left psoas muscle with surrounding induration and low attenuation centrally suggesting psoas abscess or possibly residua of intramuscular hematoma. There is confluence with the adjacent left kidney and extension to the left inguinal canal and possibly to the insertion into the lesser trochanter. 5. Large bladder calculus measuring 4.2 x 3.3 x 2.4 cm. There is bladder wall thickening and intraluminal bladder gas which may reflect recent catheterization. Infection is not excluded. 6. Mild prostatic enlargement. 7. Large left inguinal hernia containing sigmoid colon which extends into the scrotum. No definite obstruction or strangulation is seen. 8. Colonic diverticulosis without diverticulitis. Electronically signed by: Rodney Campuzano On 11/16/2019 04:18:14 AM
[2019-11-16 04:21] LABS: BLOOD UREA NITROGEN 21 MG/DL (7-18); CALCIUM LEVEL 8.8 MG/DL (8.8-10.2); CARBON DIOXIDE LEVEL 29 MEQ/L (21-32); CHLORIDE LEVEL 100 MEQ/L (98-107); CREATININE FOR GFR 0.99 MG/DL (0.70-1.30); GLOMERULAR FILTRATION RATE > 60.0 (>35); GLUCOSE, FASTING 102 MG/DL (70-100); SODIUM LEVEL 133 MEQ/L (136-145)
--- NOTE | 2019-11-16 06:08 | IPNPDOC ---
Text Note Date of Service The patient was seen on 11/16/19. NOTE I was called urgently to the bedside by the patient's nurse as the patient was experiencing great pain after insertion of Rivera catheter. Patient has had a large swelling on the scrotum since coming to the hospital. Because of the acute onset of the patient's pain in his penis and scrotum, the nurse was very concerned and, the bedside. Upon entering the patient's room, the patient was clearly in distress asking for us to "please stop this." Nursing staff says that they just recently had to start straight cathing the patient and this is becoming more and more difficult. Upon palpation of the swelling, it appeared that there was gas in the left scrotum. On auscultation, bowel sounds were heard throughout the left scrotum. Because of the acuteness of the pain, a CT of the abdomen and pelvis was ordered to evaluate what appeared to be an inguinal hernia to make sure that there was no strangulation or obstruction. A lactic acid level was also ordered. CT of the abdomen and pelvis without contrast showed solid-appearing mass of the upper pole of the right kidney suspicious for renal cell carcinoma, cholelithiasis, large nonobstructing left renal calculus or calculi in the lower pole area and large left psoas muscle with surrounding induration and low attenuation centrally suggesting psoas abscess or possibly residual of intramuscular hematoma. There is confluent with the adjacent left kidney and extension of the left inguinal canal and possibly to the insertion into the lesser trochanter. Large bladder calculus measuring 4.2 x 3.3 x 2.4 cm. There is bladder wall thickening and intermittent luminal bladder gas may reflect recent catheterization. Mild prostatic enlargement. Large left inguinal hernia containing sigmoid colon which extends into the scrotum. No definite obstruction or strangulation is seen. Colonic diverticulosis without diverticulitis. Lactic acid of the laboratory studies came back within normal limits. Patient became much more comfortable after Rivera catheter was removed however, the patient is still having urinary retention issues and does require straight cathing. Patient's urinary retention issues seem related to the worsening of the patient's inguinal hernia and should be evaluated by general surgery. VS,Fishbone, I+O VS, Fishbone, I+O Laboratory Tests 11/16/19 03:52 Vital Signs Date Time Temp Pulse Resp B/P (MAP) Pulse Ox O2 Delivery O2 Flow Rate FiO2 3/2/20 14:00 97.5 66 18 133/67 (89) 96 Room Air I&O- Last 24 Hours up to 6 AM 11/16/19 05:59 Intake Total 1800 ml Output Total 3725 ml Balance -1925 ml YARELI DESHPANDE DO Nov 16, 2019 06:08
[2019-11-16 06:09] VITALS: BP 112/63
[2019-11-16] MEDS: HumaLOG INSULIN (NovoLOG) PER UNIT SC SCH ×4 (07:30→21:15)
[2019-11-16 09:35] VITALS: BP 137/77
[2019-11-16] MEDS: APIXABAN 2.5 MG TAB (ELIQUIS) PO SCH ×2 (09:54→21:14)
[2019-11-16] MEDS: DOCUSATE SODIUM 100 MG CAP PO SCH ×2 (09:54→20:37)
[2019-11-16] MEDS: AUGMENTIN 500 MG TAB PO SCH ×2 (09:54→21:14)
[2019-11-16 10:00] VITALS: BP 137/77
--- NOTE | 2019-11-16 15:47 | IPN ---
DATE: 11/16/2019 SUBJECTIVE: The patient remains disoriented this morning. He was able to state that he is in the hospital but unable to say that he is at [facility]. He did not know the date today -- month, day and year. He says "I am sick," as to the reason why he is in the hospital. He could not remember any conversation with the doctor yesterday and stated, "I don't know what he said to me." The patient is being treated for a urinary tract infection (UTI) with Streptococcus gallolyticus. Blood culture remains negative. CT of the abdomen and pelvis this morning showed a large nonobstructing left renal calculus in the lower pole, as well as systolic mass in the right kidney, suspicious for renal cell carcinoma. This morning, the patient appears disoriented to place and time. He is able to state his name. He says that he lives with his , who helps him with his activities of daily living. He says that he is back to baseline. He has no fever, chills, hematuria. No dysuria, urgency, or frequency. The patient wants to go home and does not want to consider jail placement. He does not want to make a decision about code status today, nor does he want to proceed with any further evaluation of his right renal mass. OBJECTIVE: PHYSICAL EXAMINATION: VITAL SIGNS: Temperature 97.5, pulse 51, respiratory rate 19, blood pressure 112/63, 95% on room air. GENERAL: The patient is awake, alert and oriented to person only. He is disoriented to time and place. He does answer questions appropriately. Speech is fluent. Face is midline. No jugular venous distention (JVD), thyromegaly. No cervical lymphadenopathy. Dry mucous membranes and edentulous. LUNGS: Clear to auscultation. No wheezing, rales or rhonchi. HEART: S1, S2. Sinus bradycardia. ABDOMEN: Soft, nontender, nondistended. Positive bowel sounds times four quadrants. No rebound or guarding. No abdominal bruits. No hepatosplenomegaly. No fluid wave. EXTREMITIES: No cyanosis, clubbing or pitting edema. SKIN: Warm and dry. Well perfused, pink in color. LABORATORY DATA: White count 9.7, hemoglobin 12, hematocrit 36, platelet count 352. Sodium 133, potassium 4, chloride 100, bicarbonate 29, BUN 21, creatinine 0.99, glucose 102. Urine culture showed Streptococcus gallolyticus sensitive to amoxicillin. Blood culture negative. CT of the abdomen and pelvis showed right upper pole homogenous mass 5 x 5 x 4 cm, suspicious for renal cell carcinoma, large nonobstructing left renal calculus. No abdominal aneurysm. Colonic diverticulosis without diverticulitis, normal appendix. No abnormal lymphadenopathy. ASSESSMENT AND PLAN: This is an 79-year-old male admitted on 11/09/2019 from home with confusion when neighbors noticed some amnesia. The patient was found to have urinary tract infection (UTI), treated with intravenous Cipro in the emergency room and changed to Bactrim and now to amoxicillin. CURRENT ISSUES: 1. Acute metabolic encephalopathy secondary to urinary tract infection (UTI) with underlying dementia. The patient currently is on amoxicillin at 500 mg twice a day, renally dosed according to age and creatinine clearance. He is doing well. Afebrile with no white count. 2. Solid right renal mass concerning for renal cell carcinoma. The patient is disoriented with chronic dementia. We will defer to the patient's or healthcare proxy. Patient and family services (PFS) has been consulted. The patient is still a FULL CODE. It is quite concerning regarding patient's code status knowing that there might be a terminal cancer. The patient does not recall having a primary care provider, will need to be assigned to one prior to discharge. 3. Type 2 diabetes. On Levemir insulin with glucose levels of 263 to 306 with a level of 73 this morning. Decrease Levemir insulin to 16 units at night. 4. Renal stones. Outpatient followup. No signs of obstruction at this time. 5. Benign prostatic hypertrophy (BPH). On chronic Flomax. 6. Chronic kidney disease stage III, currently at his baseline creatinine. 7. Chronic atrial fibrillation, on Eliquis 2.5 mg twice a day. 8. CT of the head on admission showed chronic small vessel ischemic disease. CODE STATUS: FULL CODE. MTDD
[2019-11-16] MEDS: TAMSULOSIN 0.4 MG CAP PO SCH (21:14)
[2019-11-16] MEDS: LEVEMIR (INSULIN DETEMIR) 1 UNITS/0.01ML SC SCH (21:15)
[2019-11-17 05:23] VITALS: BP 112/67
[2019-11-17 08:00] VITALS: BP 129/62
[2019-11-17] MEDS: APIXABAN 2.5 MG TAB (ELIQUIS) PO SCH ×2 (08:13→22:47)
[2019-11-17] MEDS: DOCUSATE SODIUM 100 MG CAP PO SCH ×2 (08:14→22:47)
[2019-11-17] MEDS: ACETAMINOPHEN TAB 650MG DOSE (2X325MG) PO PRN (08:15)
[2019-11-17] MEDS: HumaLOG INSULIN (NovoLOG) PER UNIT SC SCH ×4 (08:16→21:00)
[2019-11-17 08:30] VITALS: BP 129/62
[2019-11-17 14:00] VITALS: BP 116/62
--- NOTE | 2019-11-17 19:34 | IPN ---
DATE: 11/17/2019 The patient remains confused and disoriented, says that he has no family and does not know what to do. He remains afebrile. No chills. No dysuria, urgency, frequency, flank pain. Cooperative with physical therapy (PT) but only oriented to himself. PHYSICAL EXAMINATION: VITAL SIGNS: Temperature 97.5, pulse 78, respiratory rate 18, blood pressure 129/62, 97% on room air. GENERAL: The patient is disoriented but is cooperative. He appears to be withdrawn and closes his eyes when interviewed. The patient otherwise denies any nausea, vomiting, abdominal pain. Denies any dysuria, urgency, frequency, flank pain or chills. No cough or shortness of breath. No respiratory distress. LUNGS: Clear to auscultation. No wheezing, rales or rhonchi. HEART: S1, S2. Sinus rhythm. ABDOMEN: Soft, nontender, nondistended. Positive bowel sounds times four quadrants. No rebound or guarding. EXTREMITIES: No cyanosis, clubbing or pitting edema. LABORATORY DATA: White count 9.7, hemoglobin 12, hematocrit 36, platelet count 352. Sodium 133, potassium 4.0, chloride 100, bicarbonate 29, BUN 21, creatinine 0.99, glucose 102. 11/09/2019 urine culture with Streptococcus gallolyticus. ASSESSMENT AND PLAN: This is an 79-year-old male with chronic dementia found by neighbors to have significant amnesia, brought in and was found to have urinary tract infection (UTI) and a solid right renal mass concerning for renal cell carcinoma. 1. Acute metabolic encephalopathy secondary to urinary tract infection (UTI) in the setting of chronic dementia, which has worsened. The patient is completely disoriented. He has completed a full course of amoxicillin. Currently afebrile with no white count. 2. Urinary tract infection (UTI) present on admission with Streptococcus gallolyticus. If found on blood culture, will need workup for colonic malignancy. CT of the abdomen and pelvis was negative for any colonic mass but was concerning for renal cell cancer. 3. Renal mass suspicious for renal cell carcinoma. The patient says "I don't know, I don't know," when asked whether he wants workup for this. He remains to be a FULL CODE. We have asked patient and family services (PFS) to obtain guardianship. He has chronic dementia. Risk far outweighs the benefit at his advanced age. 4. Left inguinal hernia without obstruction or strangulation. The patient has no pain. We will continue to clinically monitor for now. 5. Bladder calculus, asymptomatic. DISPOSITION: The patient is medically stable for hospital discharge but lives alone and will need placement. We will change to alternate level of care (ALC) status.
[2019-11-17] MEDS: TAMSULOSIN 0.4 MG CAP PO SCH (22:47)
[2019-11-17] MEDS: LEVEMIR (INSULIN DETEMIR) 1 UNITS/0.01ML SC SCH (22:47)
[2019-11-18 05:34] VITALS: BP 127/64
[2019-11-18 07:43] LABS: HEMOGLOBIN 12.7 g/dl (13.5-17.5); MEAN CORPUSCULAR HEMOGLOBIN 30.6 pg (27.0-33.0); MEAN CORPUSCULAR HGB CONC 35.3 g/dl (32.0-36.5); MEAN CORPUSCULAR VOLUME 86.7 fl (80.0-96.0); PLATELET COUNT, AUTOMATED 353 10^3/uL (150-450); RED BLOOD COUNT 4.15 10^6/uL (4.30-6.10); WHITE BLOOD COUNT 9.7 10^3/uL (4.0-10.0)
[2019-11-18] MEDS: DOCUSATE SODIUM 100 MG CAP PO SCH ×2 (08:43→21:53)
[2019-11-18] MEDS: APIXABAN 2.5 MG TAB (ELIQUIS) PO SCH ×2 (08:43→21:53)
[2019-11-18] MEDS: HumaLOG INSULIN (NovoLOG) PER UNIT SC SCH ×4 (08:44→21:56)
[2019-11-18 20:09] VITALS: BP 121/56
[2019-11-18] MEDS: LEVEMIR (INSULIN DETEMIR) 1 UNITS/0.01ML SC SCH (21:53)
[2019-11-18] MEDS: TAMSULOSIN 0.4 MG CAP PO SCH (21:53)
[2019-11-19 05:57] VITALS: BP 120/55
[2019-11-19] MEDS: APIXABAN 2.5 MG TAB (ELIQUIS) PO SCH ×2 (08:44→20:02)
[2019-11-19] MEDS: DOCUSATE SODIUM 100 MG CAP PO SCH ×2 (08:45→20:02)
[2019-11-19] MEDS: HumaLOG INSULIN (NovoLOG) PER UNIT SC SCH ×4 (08:45→20:06)
[2019-11-19] MEDS: TAMSULOSIN 0.4 MG CAP PO SCH (20:02)
[2019-11-19] MEDS: LEVEMIR (INSULIN DETEMIR) 1 UNITS/0.01ML SC SCH (20:06)
[2019-11-19 20:43] VITALS: BP 113/60
--- NOTE | 2019-11-19 21:28 | IPN ---
DATE: 11/18/2019 The patient was seen and examined at the bedside today. He denies any fever, chills, spine pain, dysuria, urgency, frequency, hematuria. The patient has been treated for urinary tract infection and remains afebrile with normal white count. The patient remains disoriented to time, place. He is only oriented to himself. He is cooperative, pleasant to talk to and agreeable to a mini-mental status examination today. PHYSICAL EXAMINATION: Temperature 98.6, pulse 56 to 58, respiratory rate 16, blood pressure 127/64, 96% on room air. GENERAL: The patient is awake, alert, oriented to himself only. He is edentulous. Appears his stated age. Normal effect. No facial asymmetry, drooping. No jugular venous distension (JVD) or thyromegaly. Dry mucous membranes. No jugular venous distension (JVD), cervical lymphadenopathy, thyromegaly. Lungs are clear to auscultation. No wheezes, rales or rhonchi. No adventitious breath sounds. Air entry is equal bilaterally. Air entry is equal bilaterally. No kyphoscoliosis. Heart: S1, S2. Sinus rhythm. Regular rate and rhythm. No murmurs, rubs or gallops. Abdomen is soft, nontender, nondistended. Positive bowel sounds in four quadrants. No rebound or guarding. No hepatosplenomegaly. No abdominal bruits. Extremities: No cyanosis or clubbing. Skin is warm, dry and well perfused, pink in color. Neurologically, the patient's mini-mental status exam is 15 out of 30. The patient was disoriented to date, month, year and day of the week and season. The patient understood that this was the hospital, [facility], did not know what floor we were in. He was able to state that the city was [place] and [facility]. The patient could not recall 3 words that were said to him, 1 was pedal, 2 was amphibian and 3 was bubble. The patient was unable to count backwards from 100 with serial 7s. Able to state 93, but could not calculate beyond that. He did well with spelling the word world backwards and was able to say DL, could not say an R, proceeded with an O and a W and received 4 points for that. The patient was able to name a cup at the bedside and the remote control. He was able to repeat no ifs, ands or buts. The patient was able to perform a three stage command of taking the paper, folding and placing it on the table. The patient was able to read and to do what it says, close your eyes. The patient was unable to complete a sentence and was unable to provide a verb. He did not make any sense. He was able to copy two intersecting shapes. All angles on the figures were present and they were overlapping on one angle. Overall score was 15 out of 30, which is most likely indicative of moderate cognitive impairment. LABORATORY DATA: White count 9.7, hemoglobin 12, hematocrit 36, platelet count 353. Sodium 133, potassium 4, chloride 100, bicarbonate 29, BUN 21, creatinine 0.99, glucose of 102. Microbiology: Urine culture with Streptococcal gallolyticus. Blood culture no growth after [address] of abdomen and pelvis of 11/16/2019: Normal liver. Large irregular gallstones in the gallbladder which is contracted. Minimal pancreatic calcifications. Splenic cyst measuring 12 mm. Normal adrenals. Kidney and ureters, large and nonobstructing left renal calculus or calculi in the lower pole measuring up to 18 mm. There is a right renal cyst measuring up to 4.5 cm, homogeneous mass in the upper pole of the right kidney measuring 5.3 x 5.1x 4.1 cm, which is suspicious for renal cell carcinoma. Stomach and bowel: Colonic diverticulosis without diverticulitis. Question of partial visualization of normal appendix. Large laminated bladder calculus measuring 4.2 x 3.3 x 2.4 cm with bladder wall thickening with bladder wall thickening with intraluminal bladder gas and large left psoas muscle with induration and low attenuation centrally, which may represent a left psoas hematoma. Surrounding induration extends caudally. Large left inguinal hernia extending into the scrotum containing much of the sigmoid colon. SUBJECTIVE: The patient denies any abdominal pain. He denies any groin pain on the left with known history of an inguinal hernia extending into the scrotum. The patient does not complain of any pain or difficulty with urinating. ASSESSMENT AND PLAN: This is an 79-year-old male, who lives alone with no healthcare proxy, full code, brought in by neighbors due to acute mental status changes. The patient was unable to provide circumstances of his arrival to the hospital and could not recall the circumstances of his circumstances. IMPRESSION: 1. Urinary tract infection, resolved. The patient has completed a full course of antibiotics, status post amoxicillin, afebrile, no white count. 2. Acute kidney injury, resolved with IV fluid hydration. 3. Chronic dementia. The patient was documented to have cognitive impairment by his primary care physician, Dr. Gustavo Mckeon as outpatient a year ago. He is not safe and does not exhibit mental capacity at this time with mini-mental status of 15 out of 30. When asked what he would do in case of an illness, the patient was unable to state the name of his physician, how to call his doctor, how to come to the hospital. When asked how he conducts his activities of daily living, the patient says I do not know. He does not fully have a plan of action should he need some help at home. The patient is unable to answer what he would do in case he fell at home how he would obtain help and the steps to get himself better. At this time, I have indicated to him that he has an abnormal CT abdomen and pelvis with possible malignant mass and a kidney; and when asked what he wants to do and if he understands what he wants to do or what it means to do further evaluation, the patient says I don't know, I don't know. At this time, he does not appear to have the mental capacity to make medical decisions for himself. He is unable to perform his activities of daily living and his balance has been impaired requiring continued supervision. The patient is currently unsafe to be discharged home. He does have a healthcare proxy, both his nephew, as well as his ex- have been contact, both of whom have refused to be involved in his care. Patient Family Services (PFS) has been consulted. The patient is mentally incapacitated, unable to understand the consequences of his actions, does not understand the gravity of his illness and the need for supervision at home. DISPOSITION: Deferred to Patient Family Services (PFS) for placement.
[2019-11-20 06:05] VITALS: BP 117/59
--- NOTE | 2019-11-20 07:19 | IPN ---
DATE: 11/19/2019 Patient has been changed to alternate level of care (ALC) [facility] facility ([facility]) status as there is no acute medical issues at this time. Patient is awaiting placement. He has no mental capacity. Patient and family services (PFS) has been consulted.
[2019-11-20] MEDS: DOCUSATE SODIUM 100 MG CAP PO SCH ×2 (08:14→20:42)
[2019-11-20] MEDS: APIXABAN 2.5 MG TAB (ELIQUIS) PO SCH ×2 (08:14→20:42)
[2019-11-20] MEDS: HumaLOG INSULIN (NovoLOG) PER UNIT SC SCH ×4 (08:14→20:48)
[2019-11-20] MEDS: TAMSULOSIN 0.4 MG CAP PO SCH (20:42)
[2019-11-20] MEDS: LEVEMIR (INSULIN DETEMIR) 1 UNITS/0.01ML SC SCH (20:44)
[2019-11-21 06:00] VITALS: BP 119/60
[2019-11-21 07:00] LABS: HEMATOCRIT 36.5 % (42.0-52.0); HEMOGLOBIN 12.5 g/dl (13.5-17.5); MEAN CORPUSCULAR HGB CONC 34.2 g/dl (32.0-36.5); MEAN CORPUSCULAR VOLUME 87.7 fl (80.0-96.0); PLATELET COUNT, AUTOMATED 361 10^3/uL (150-450); RED BLOOD COUNT 4.16 10^6/uL (4.30-6.10); WHITE BLOOD COUNT 9.8 10^3/uL (4.0-10.0)
[2019-11-21] MEDS: APIXABAN 2.5 MG TAB (ELIQUIS) PO SCH ×2 (08:28→20:11)
[2019-11-21] MEDS: DOCUSATE SODIUM 100 MG CAP PO SCH ×2 (08:29→20:10)
[2019-11-21] MEDS: HumaLOG INSULIN (NovoLOG) PER UNIT SC SCH ×4 (08:29→20:53)
[2019-11-21] MEDS: TAMSULOSIN 0.4 MG CAP PO SCH (20:11)
[2019-11-21] MEDS: LEVEMIR (INSULIN DETEMIR) 1 UNITS/0.01ML SC SCH (20:13)
[2019-11-22] MEDS: ACETAMINOPHEN TAB 650MG DOSE (2X325MG) PO PRN ×2 (01:24→21:14)
[2019-11-22 05:22] VITALS: BP 122/66
[2019-11-22] MEDS: HumaLOG INSULIN (NovoLOG) PER UNIT SC SCH ×4 (07:30→21:13)
[2019-11-22] MEDS: DOCUSATE SODIUM 100 MG CAP PO SCH ×2 (09:00→21:14)
[2019-11-22] MEDS: APIXABAN 2.5 MG TAB (ELIQUIS) PO SCH ×2 (09:28→21:14)
[2019-11-22] MEDS: TAMSULOSIN 0.4 MG CAP PO SCH (21:14)
[2019-11-22] MEDS: LEVEMIR (INSULIN DETEMIR) 1 UNITS/0.01ML SC SCH (21:14)
[2019-11-23 06:03] VITALS: BP 128/63
[2019-11-23] MEDS: HumaLOG INSULIN (NovoLOG) PER UNIT SC SCH ×4 (08:15→20:52)
[2019-11-23] MEDS: DOCUSATE SODIUM 100 MG CAP PO SCH ×2 (08:15→20:36)
[2019-11-23] MEDS: APIXABAN 2.5 MG TAB (ELIQUIS) PO SCH ×2 (08:15→20:36)
[2019-11-23] MEDS: TAMSULOSIN 0.4 MG CAP PO SCH (20:36)
[2019-11-23] MEDS: ACETAMINOPHEN TAB 650MG DOSE (2X325MG) PO PRN (20:37)
[2019-11-23] MEDS: LEVEMIR (INSULIN DETEMIR) 1 UNITS/0.01ML SC SCH (20:56)
[2019-11-24] MEDS ORDERED: LIDOCAINE 2% 5ML JELLY UROJET TOP PRN (02:00)
[2019-11-24 04:29] VITALS: BP 108/51
[2019-11-24] MEDS: HumaLOG INSULIN (NovoLOG) PER UNIT SC SCH ×4 (07:30→21:00)
[2019-11-24] MEDS: APIXABAN 2.5 MG TAB (ELIQUIS) PO SCH ×2 (08:25→22:37)
[2019-11-24] MEDS: DOCUSATE SODIUM 100 MG CAP PO SCH ×2 (08:28→22:38)
--- NOTE | 2019-11-24 16:04 | IPNPDOC ---
Subjective Date Seen The patient was seen on 11/24/19. Subjective Chief Complaint/HPI Resting in bed, doing ok this afternoon. Objective Physical Examination General Exam: Positive: No Acute Distress Eye Exam: Negative: Sclera icteric ENT Exam: Positive: Pharynx Normal, Nares Patent, Pinna Normal; Negative: Pharyngeal Edema Neck Exam: Positive: Supple; Negative: JVD, thyromegaly Chest Exam: Positive: Clear to auscultation Heart Exam: Positive: Rate Normal, Normal S1, Normal S2 Abdomen Exam: Positive: Normal bowel sounds Male Exam: Positive: Tenderness (no suprapubic) Extremity Exam: Negative: Clubbing, Cyanosis, Edema Skin Exam: Positive: Nl turgor and temperature; Negative: Rash Neuro Exam: Positive: Normal Speech Psych Exam: Positive: Mood NL, Other (oriented to self only) Assessment /Plan Assessment # Altered mental status due to UTI - resolved, but has underlying dementia - consult Dr. Urbina for competency eval # Urine Retention - flomax, straight cath prn - urology f/u as outpatient # Fever - blood cx no growth to date - ? if tumor fever associated with renal mass # UTI (Strep Gallolyticus) - augmentin day # 01/17 # Dementia - d/w PFS patient does have hx of dementia - b12, tsh normal, B1 level normal - unable to do MRI because patient can not fill MRI pre-screen form due to dementia # CKD stage 3 - creat looks to be w/i his historical range - avoid nephrotoxins # Right renal mass noted on Renal ULS - reviewed CT abd/pelvis # Poorly controlled DM type 2 - continue NovoLog SS - added Levemir 15 units qhs - BG improved # Chronic a fib rate controlled - eliquis 2.5 mg po bid Dispo: needs placement and will likely need guardianship Plan/VTE VTE Prophylaxis Ordered?: Yes (lovenox) VTE Exclusion Mechanical Proph: N/A:VTE Prophy Ordered VTE Exclusion Pharmacological: N/A:VTE Prophy Ordered VS, I&O, 24H, Fishbone Vital Signs/I&O Vital Signs Date Time Temp Pulse Resp B/P (MAP) Pulse Ox O2 Delivery O2 Flow Rate FiO2 11/24/19 04:29 98.6 55 18 108/51 (70) 95 Room Air I&O- Last 24 Hours up to 6 AM 11/24/19 06:00 Intake Total 1430 ml Output Total 850 ml Balance 580 ml Laboratory Data 24H LABS Laboratory Tests 2 11/23/19 16:57: Bedside Glucose (Misc Panel) 298H 11/23/19 20:49: Bedside Glucose (Misc Panel) 246H 11/24/19 05:13: Bedside Glucose (Misc Panel) 102 11/24/19 11:49: Bedside Glucose (Misc Panel) 257H Microbiology Microbiology 11/14/19 Blood Culture - Final, Complete NO GROWTH AFTER 5 DAYS SHANTHI HERMOSILLO MD Nov 24, 2019 16:04
[2019-11-24] MEDS: LEVEMIR (INSULIN DETEMIR) 1 UNITS/0.01ML SC SCH (22:37)
[2019-11-24] MEDS: TAMSULOSIN 0.4 MG CAP PO SCH (22:38)
[2019-11-25 06:01] VITALS: BP 121/62
[2019-11-25] MEDS: HumaLOG INSULIN (NovoLOG) PER UNIT SC SCH ×4 (07:30→22:04)
[2019-11-25] MEDS: APIXABAN 2.5 MG TAB (ELIQUIS) PO SCH ×2 (08:32→22:03)
[2019-11-25] MEDS: DOCUSATE SODIUM 100 MG CAP PO SCH ×2 (08:32→22:04)
--- NOTE | 2019-11-25 13:16 | MHCRPDOC ---
[facility] Consultation Consultation DATE OF CONSULTATION: 11/25/19 CONSULTATION REQUESTED BY: Dr. Stringer REASON FOR CONSULTATION: Capacity evaluation RELEVANT HISTORY: Per medical admission note: "This is an 79-year-old male who was brought to the ER by his neighbors because they noticed that he's been more confused than usual. The patient admits to having problems with his memory "for a while". He was unable to answer questions as to why he came to the hospital, did not know the name of the building that we are in, did not know the date, did not know his age, and could not name the president. He reports feeling generally well, and "happy". At the time of my interview he denied having any chest pain, shortness of breath, back pain, abdominal pain, or pain with urination." Pt found to have UTI per results of his U/A and is being treated for such by his medical doctor. Pt seen and states he's "ok" just anxious b/c "I don't know what going to happen next. Asked pt a series of questions to assess his cognition and memory, MMSE score was a 17 as does not know date/time/location (believes he's in [facility]), does not know who the president is, does not know why he's here/his medical illness/what he's being treated for (this means he lacks capacity regarding his ability to care for himself and his medical illnesses), cannot name any family or an occupation he had in the past (poor remote memory), cannot remember objects asked to remember (poor recall memory) or what he ate for lunch. Admits he believes he has problems with his memory as is agreeable to help regarding things he doesn't remember such as his medical illnesses and how to treat them or why he is having treatment for them. Pt lacks capacity regarding ability to live alone and make medical decisions. PAST PSYCHIATRIC HISTORY: Pt denies and no history per chart review PAST MEDICAL HISTORY: Dementia CKD stage 3 Right renal mass noted on Renal ULS Poorly controlled DM type 2 Chronic a fib rate controlled Imaging: Head CT w/o contrast: consistent with Vascular dementia due to hypodense white matter with small vessel ischemic changes and enlarged ventricles du to volume loss Brain: The brain demonstrates diffuse volume loss, in particular temporal lobe volume loss. There is white matter hypodensity most consistent with chronic small vessel ischemic change. No visible evolving territorial infarct. No hemorrhage. Ventricles: The ventricles appear mildly enlarged in keeping with volume loss. Bones/joints: Unremarkable. No acute fracture. Sinuses: Visualized sinuses are unremarkable. No fluid levels. Mastoid air cells: Visualized mastoid air cells are well aerated. Soft tissues: Unremarkable. FAMILY HISTORY: noncontributory and unknown PERSONAL AND SOCIAL HISTORY: The patient was born and raised in the [place], [place]. Resides in: [place] alone with supportive neighbors close by Marital Status: Legally Children: not known and pt unsure if he has family living near him Employment: presumed to be retire SUBSTANCE ABUSE HISTORY: utox neg and unknown LEGAL HISTORY: . unknown MENTAL STATUS EXAMINATION: Patient is a 79-year old male, who is seen sitting in Hospital bed and is cooperative and pleasant. Speech is regular rate/rhythm/volume Language skills are good Thought processes including: linear and logical Thought content: denies SI/HI Abstract reasoning, and computation: limited by cognitive decline Description of associations: limited by cognitive decline Description of abnormal or psychotic thoughts: denies Judgment: limited by cognitive decline Insight: limited by cognitive decline Orientation to only to self Recent and remote memory: see interview Attention span and concentration: fair to good Language: appropriate Fund of knowledge: see interview Mood: "ok" Affect: euthymic, congruent DIAGNOSIS: Moderate to Severe Cognitive D/O R/O Vascular Dementia PLAN: Pt lacks capacity regarding ability to live alone and make medical decisions. Vital Signs Vital Signs Date Time Temp Pulse Resp B/P (MAP) Pulse Ox O2 Delivery O2 Flow Rate FiO2 11/25/19 06:01 98.2 51 16 121/62 (81) 96 Room Air Laboratory Data 24H Labs Laboratory Tests 2 11/24/19 17:00: Bedside Glucose (Misc Panel) 207H 11/24/19 20:51: Bedside Glucose (Misc Panel) 239H 11/25/19 05:58: Bedside Glucose (Misc Panel) 87 11/25/19 11:34: Bedside Glucose (Misc Panel) 251H Home Medications Current Medications Current Medications Medications (Trade) Dose Ordered Sig/Amos Route PRN Reason Start Time Stop Time Status Last Admin Dose Admin Acetaminophen (Tylenol Tab) 650 mg Q4H PRN PO PAIN OR FEVER 11/09/19 20:00 11/23/19 20:37 Al Hydrox/Mg Hydrox/Simethicone (Mylanta) 30 ml DAILY PRN PO DYSPEPSIA 11/09/19 20:00 Amoxicillin/ Clavulanate Potassium (Augmentin) 500 mg BID PO 11/12/19 09:00 11/16/19 23:59 DC 11/16/19 21:14 Apixaban (Eliquis) 2.5 mg BID PO 11/15/19 21:00 11/25/19 08:32 Dextromethorphan (Delsym Af 12hr Susp) 30 mg Q12HP PRN PO COUGH 11/15/19 10:30 Dextrose (Dextrose 50%) 25 ml ASDIRECTED PRN IV SEE LABEL COMMENTS 11/09/19 20:00 Docusate Sodium (Colace) 100 mg BID PO 11/09/19 21:00 11/25/19 08:32 Enoxaparin Sodium (Lovenox) 40 mg DAILY SC 11/10/19 09:00 11/15/19 10:46 DC 11/15/19 08:54 Glucagon (Glucagon) 1 mg ASDIRECTED PRN SC SEE LABEL COMMENTS 11/09/19 20:00 Glucose (Glucose) 16 GM ASDIRECTED PRN PO SEE LABEL COMMENTS 11/09/19 20:00 Home Med (Med Rec Complete!) ASDIRECTED XX 11/09/19 20:15 11/09/19 20:14 DC Insulin Detemir (Levemir Insulin) 10 units QHS SC 11/10/19 21:00 11/13/19 08:07 DC 11/12/19 21:25 Insulin Detemir (Levemir Insulin) 15 units QHS SC 11/13/19 21:00 11/14/19 07:20 DC 11/13/19 20:34 Insulin Detemir (Levemir Insulin) 16 units QHS SC 11/16/19 21:00 11/24/19 22:37 Insulin Detemir (Levemir Insulin) 18 units QHS SC 11/14/19 21:00 11/16/19 08:00 DC 11/15/19 21:51 Insulin Human Lispro (HumaLOG INSULIN) SEE PROTOCOL TABLE AC SC 11/10/19 07:30 11/25/19 12:14 Insulin Human Lispro (HumaLOG INSULIN) SEE PROTOCOL TABLE QHS SC 11/10/19 21:00 3/20 21:13 Insulin Human Lispro (HumaLOG INSULIN) See Protocol Table AC OK 11/10/19 07:30 11/10/19 09:35 DC Insulin Human Lispro (HumaLOG INSULIN) See Protocol Table AC OK 11/10/19 07:30 11/10/19 09:52 DC 11/10/19 09:39 Insulin Human Lispro (HumaLOG INSULIN) See Protocol Table QHS OK 11/09/19 21:00 11/10/19 09:35 DC Insulin Human Lispro (HumaLOG INSULIN) See Protocol Table QHS OK 11/10/19 21:00 11/10/19 09:52 DC Lidocaine HCl (Lidocaine 2% Urojet) APPLY TO CATHETER TIP ... Q6HP PRN TOP FOR EACH CATHETERIZATION 11/24/19 02:00 Magnesium Hydroxide (Milk Of Magnesia) 30 ml DAILY PRN PO CONSTIPATION 11/09/19 20:00 Sodium Chloride 1,000 ml @ 90 mls/hr Q11H7M IV 11/09/19 20:00 11/09/19 20:37 DC Tamsulosin HCl (Flomax) 0.4 mg QHS PO 11/14/19 21:00 11/24/19 01:58 DC 11/23/19 20:36 Tamsulosin HCl (Flomax) 0.8 mg QHS PO 11/24/19 21:00 11/24/19 22:38 Trimethoprim/ Sulfamethoxazole (Bactrim Ds, Septra Ds 160mg/ 800mg) 1 tab Q12H PO 11/09/19 21:00 11/12/19 11:34 DC 11/11/19 21:06 No Active Prescriptions or Reported Meds Allergies Coded Allergies: No Known Allergies (Unverified , 11/09/19) ROBERT MARLOW DO Nov 25, 2019 12:47
[2019-11-25 22:00] VITALS: BP 123/62
[2019-11-25] MEDS: TAMSULOSIN 0.4 MG CAP PO SCH (22:04)
[2019-11-25] MEDS: LEVEMIR (INSULIN DETEMIR) 1 UNITS/0.01ML SC SCH (22:04)
[2019-11-26 06:00] VITALS: BP_SYST 183; BP_SYST 99; BP_DIAS 55; BP_DIAS 91
[2019-11-26] MEDS: APIXABAN 2.5 MG TAB (ELIQUIS) PO SCH ×2 (07:45→21:12)
[2019-11-26] MEDS: DOCUSATE SODIUM 100 MG CAP PO SCH ×2 (07:45→21:12)
[2019-11-26] MEDS: HumaLOG INSULIN (NovoLOG) PER UNIT SC SCH ×4 (07:45→21:00)
--- NOTE | 2019-11-26 10:42 | IPNPDOC ---
Subjective Date Seen The patient was seen on 11/26/19. Subjective Chief Complaint/HPI Pleasantly demented. no complaints. Objective Physical Examination General Exam: Positive: No Acute Distress Eye Exam: Positive: PERRLA; Negative: Sclera icteric ENT Exam: Positive: Atraumatic, Pharynx Normal; Negative: Pharyngeal Edema Neck Exam: Positive: Supple; Negative: JVD, thyromegaly Chest Exam: Positive: Clear to auscultation Heart Exam: Positive: Rate Normal, Normal S1, Normal S2 Abdomen Exam: Positive: Normal bowel sounds Male Exam: Negative: Tenderness Extremity Exam: Negative: Clubbing, Cyanosis, Edema Skin Exam: Positive: Nl turgor and temperature; Negative: Rash Neuro Exam: Positive: Normal Speech Psych Exam: Positive: Mood NL, Other (oriented to self only) Assessment /Plan Assessment # Altered mental status due to UTI - resolved, but has underlying dementia - seen by Dr. Urbina for competency eval on 11/25/2019, and declared medically incompetent # Urine Retention - flomax, straight cath prn - urology f/u as outpatient # UTI (Strep Gallolyticus) - augmentin day # 01/17 # Dementia - d/w PFS patient does have hx of dementia - b12, tsh, and B1 levels all normal - unable to do MRI because patient can not fill MRI pre-screen form due to dementia # CKD stage 3 - creat looks to be w/i his historical range - avoid nephrotoxins - repeat labs on 11/28 # Right renal mass noted on Renal ULS - reviewed CT abd/pelvis # Poorly controlled DM type 2 - continue NovoLog SS - added Levemir 16 units qhs - BG improved # Chronic a fib rate controlled - eliquis 2.5 mg po bid Dispo: needs placement and will likely need guardianship Plan/VTE VTE Prophylaxis Ordered?: Yes (lovenox) VTE Exclusion Mechanical Proph: N/A:VTE Prophy Ordered VTE Exclusion Pharmacological: N/A:VTE Prophy Ordered VS, I&O, 24H, Fishbone Vital Signs/I&O Vital Signs Date Time Temp Pulse Resp B/P (MAP) Pulse Ox O2 Delivery O2 Flow Rate FiO2 11/26/19 06:00 97.1 52 17 99/55 (70) 97 Room Air I&O- Last 24 Hours up to 6 AM 11/26/19 05:59 Intake Total 2530 ml Output Total 500 ml Balance 2030 ml Laboratory Data 24H LABS Laboratory Tests 2 11/25/19 11:34: Bedside Glucose (Misc Panel) 251H 11/25/19 16:56: Bedside Glucose (Misc Panel) 157H 11/25/19 20:11: Bedside Glucose (Misc Panel) 285H 11/26/19 04:49: Bedside Glucose (Misc Panel) 117H SHANTHI HERMOSILLO MD Nov 26, 2019 10:42
[2019-11-26] MEDS: TAMSULOSIN 0.4 MG CAP PO SCH (21:12)
[2019-11-26] MEDS: LEVEMIR (INSULIN DETEMIR) 1 UNITS/0.01ML SC SCH (21:12)
[2019-11-27 06:00] VITALS: BP 113/57
[2019-11-27] MEDS: HumaLOG INSULIN (NovoLOG) PER UNIT SC SCH ×4 (07:30→20:46)
[2019-11-27] MEDS: APIXABAN 2.5 MG TAB (ELIQUIS) PO SCH ×2 (08:57→21:22)
[2019-11-27] MEDS: DOCUSATE SODIUM 100 MG CAP PO SCH ×2 (08:57→21:22)
[2019-11-27 14:00] VITALS: BP 120/56
[2019-11-27] MEDS: LEVEMIR (INSULIN DETEMIR) 1 UNITS/0.01ML SC SCH (21:21)
[2019-11-27] MEDS: TAMSULOSIN 0.4 MG CAP PO SCH (21:22)
[2019-11-28 06:00] VITALS: BP 104/52
[2019-11-28] MEDS: HumaLOG INSULIN (NovoLOG) PER UNIT SC SCH ×4 (07:30→21:00)
[2019-11-28] MEDS: DOCUSATE SODIUM 100 MG CAP PO SCH ×2 (08:46→21:39)
[2019-11-28] MEDS: APIXABAN 2.5 MG TAB (ELIQUIS) PO SCH ×2 (08:46→21:39)
[2019-11-28] MEDS: TAMSULOSIN 0.4 MG CAP PO SCH (21:38)
[2019-11-28] MEDS: LEVEMIR (INSULIN DETEMIR) 1 UNITS/0.01ML SC SCH (21:39)
[2019-11-29 06:00] VITALS: BP 106/53
[2019-11-29 07:01] LABS: HEMATOCRIT 36.8 % (42.0-52.0); HEMOGLOBIN 12.6 g/dl (13.5-17.5); MEAN CORPUSCULAR HEMOGLOBIN 30.6 pg (27.0-33.0); MEAN CORPUSCULAR HGB CONC 34.2 g/dl (32.0-36.5); MEAN CORPUSCULAR VOLUME 89.3 fl (80.0-96.0); PLATELET COUNT, AUTOMATED 317 10^3/uL (150-450); RED BLOOD COUNT 4.12 10^6/uL (4.30-6.10); WHITE BLOOD COUNT 6.6 10^3/uL (4.0-10.0)
[2019-11-29 07:21] LABS: BLOOD UREA NITROGEN 22 MG/DL (7-18); CALCIUM LEVEL 8.6 MG/DL (8.8-10.2); CARBON DIOXIDE LEVEL 30 MEQ/L (21-32); CHLORIDE LEVEL 103 MEQ/L (98-107); GLOMERULAR FILTRATION RATE > 60.0 (>35); GLUCOSE, FASTING 95 MG/DL (70-100); POTASSIUM SERUM 4.2 MEQ/L (3.5-5.1); SODIUM LEVEL 137 MEQ/L (136-145)
[2019-11-29] MEDS: HumaLOG INSULIN (NovoLOG) PER UNIT SC SCH ×4 (07:30→21:00)
[2019-11-29] MEDS: DOCUSATE SODIUM 100 MG CAP PO SCH ×2 (08:30→21:00)
[2019-11-29] MEDS: APIXABAN 2.5 MG TAB (ELIQUIS) PO SCH ×2 (08:30→21:00)
[2019-11-29] MEDS: LEVEMIR (INSULIN DETEMIR) 1 UNITS/0.01ML SC SCH (21:00)
[2019-11-29] MEDS: TAMSULOSIN 0.4 MG CAP PO SCH (21:00)
[2019-11-30 06:00] VITALS: BP 129/62
[2019-11-30] MEDS: HumaLOG INSULIN (NovoLOG) PER UNIT SC SCH ×4 (07:30→21:00)
[2019-11-30] MEDS: DOCUSATE SODIUM 100 MG CAP PO SCH ×2 (09:16→21:08)
[2019-11-30] MEDS: APIXABAN 2.5 MG TAB (ELIQUIS) PO SCH ×2 (09:16→21:08)
[2019-11-30] MEDS: ACETAMINOPHEN TAB 650MG DOSE (2X325MG) PO PRN (21:08)
[2019-11-30] MEDS: TAMSULOSIN 0.4 MG CAP PO SCH (21:09)
[2019-11-30] MEDS: LEVEMIR (INSULIN DETEMIR) 1 UNITS/0.01ML SC SCH (21:09)
[2019-12-01 06:00] VITALS: BP 122/57
[2019-12-01] MEDS: HumaLOG INSULIN (NovoLOG) PER UNIT SC SCH ×4 (07:27→20:06)
[2019-12-01] MEDS: DOCUSATE SODIUM 100 MG CAP PO SCH ×2 (09:16→20:05)
[2019-12-01] MEDS: APIXABAN 2.5 MG TAB (ELIQUIS) PO SCH ×2 (09:16→20:05)
[2019-12-01] MEDS: TAMSULOSIN 0.4 MG CAP PO SCH (20:05)
[2019-12-01] MEDS: ACETAMINOPHEN TAB 650MG DOSE (2X325MG) PO PRN (20:05)
[2019-12-01] MEDS: LEVEMIR (INSULIN DETEMIR) 1 UNITS/0.01ML SC SCH (21:00)
[2019-12-02 05:25] VITALS: BP 107/53
[2019-12-02] MEDS: APIXABAN 2.5 MG TAB (ELIQUIS) PO SCH ×2 (08:01→21:29)
[2019-12-02] MEDS: HumaLOG INSULIN (NovoLOG) PER UNIT SC SCH ×4 (08:01→21:50)
[2019-12-02] MEDS: DOCUSATE SODIUM 100 MG CAP PO SCH ×2 (08:01→21:29)
[2019-12-02 20:04] VITALS: BP 118/59
[2019-12-02] MEDS: LEVEMIR (INSULIN DETEMIR) 1 UNITS/0.01ML SC SCH (21:29)
[2019-12-02] MEDS: TAMSULOSIN 0.4 MG CAP PO SCH (21:29)
[2019-12-03 06:00] VITALS: BP 118/66
[2019-12-03] MEDS: HumaLOG INSULIN (NovoLOG) PER UNIT SC SCH ×4 (08:28→19:53)
[2019-12-03] MEDS: DOCUSATE SODIUM 100 MG CAP PO SCH ×2 (08:28→19:57)
[2019-12-03] MEDS: APIXABAN 2.5 MG TAB (ELIQUIS) PO SCH ×2 (08:28→19:57)
--- NOTE | 2019-12-03 10:12 | IPNPDOC ---
Text Note Date of Service The patient was seen on 12/03/19. NOTE S: Patient seen and examined at bedside. No new medical complaints. Pleasantly demented. O: General: NAD, pleasantly demented HEENT: NC/AT Lungs: CTA B/L Heart: +S1S2, RRR Abd: soft, NT, +BS Ext: no edema A/P: 79 yo male pending placement # Altered mental status due to UTI - resolved, but has underlying dementia - seen by Dr. Urbina for competency eval on 11/25/2019, and declared medically incompetent # Urine Retention - flomax, straight cath prn - urology f/u as outpatient # UTI (Strep Gallolyticus) - augmentin completed 5 days # Dementia - d/w PFS patient does have hx of dementia - b12, tsh, and B1 levels all normal - unable to do MRI because patient can not fill MRI pre-screen form due to dementia # CKD stage 3 - creat looks to be w/i his historical range - avoid nephrotoxins - repeat labs on 11/28 # Right renal mass noted on Renal ULS - reviewed CT abd/pelvis # Poorly controlled DM type 2 - continue NovoLog SS - added Levemir 16 units qhs - BG improved # Chronic a fib rate controlled - eliquis 2.5 mg po bid Dispo: needs placement and guardianship VS,Stella, I+O VS, [place], I+O Vital Signs Date Time Temp Pulse Resp B/P (MAP) Pulse Ox O2 Delivery O2 Flow Rate FiO2 12/03/19 06:00 98.1 45 18 118/66 (83) 95 Room Air I&O- Last 24 Hours up to 6 AM 12/03/19 06:00 Intake Total 1600 ml Output Total 790 ml Balance 810 ml NAA SWIFT MD Dec 03, 2019 10:12
[2019-12-03] MEDS: TAMSULOSIN 0.4 MG CAP PO SCH (19:57)
[2019-12-03] MEDS: LEVEMIR (INSULIN DETEMIR) 1 UNITS/0.01ML SC SCH (19:57)
[2019-12-03] MEDS: ACETAMINOPHEN TAB 650MG DOSE (2X325MG) PO PRN (19:58)
[2019-12-04 06:00] VITALS: BP 108/53
[2019-12-04] MEDS: HumaLOG INSULIN (NovoLOG) PER UNIT SC SCH ×4 (07:30→20:28)
[2019-12-04] MEDS: DOCUSATE SODIUM 100 MG CAP PO SCH ×2 (08:05→20:29)
[2019-12-04] MEDS: APIXABAN 2.5 MG TAB (ELIQUIS) PO SCH ×2 (08:05→20:29)
[2019-12-04] MEDS: LEVEMIR (INSULIN DETEMIR) 1 UNITS/0.01ML SC SCH (20:28)
[2019-12-04] MEDS: TAMSULOSIN 0.4 MG CAP PO SCH (20:29)
[2019-12-04] MEDS: ACETAMINOPHEN TAB 650MG DOSE (2X325MG) PO PRN (20:29)
[2019-12-05 06:00] VITALS: BP 108/46
[2019-12-05] MEDS: HumaLOG INSULIN (NovoLOG) PER UNIT SC SCH ×4 (07:21→20:02)
[2019-12-05] MEDS: DOCUSATE SODIUM 100 MG CAP PO SCH ×2 (08:18→20:02)
[2019-12-05] MEDS: APIXABAN 2.5 MG TAB (ELIQUIS) PO SCH ×2 (08:18→20:02)
[2019-12-05] MEDS: LEVEMIR (INSULIN DETEMIR) 1 UNITS/0.01ML SC SCH (20:01)
[2019-12-05] MEDS: MOM 30ML SUSPENSION UDC PO PRN (20:01)
[2019-12-05] MEDS: ACETAMINOPHEN TAB 650MG DOSE (2X325MG) PO PRN (20:02)
[2019-12-05] MEDS: TAMSULOSIN 0.4 MG CAP PO SCH (20:02)
[2019-12-06 06:00] VITALS: BP 111/57
[2019-12-06] MEDS: DOCUSATE SODIUM 100 MG CAP PO SCH ×2 (09:21→20:09)
[2019-12-06] MEDS: HumaLOG INSULIN (NovoLOG) PER UNIT SC SCH ×4 (09:21→20:14)
[2019-12-06] MEDS: APIXABAN 2.5 MG TAB (ELIQUIS) PO SCH ×2 (09:21→20:09)
[2019-12-06] MEDS: TAMSULOSIN 0.4 MG CAP PO SCH (20:09)
[2019-12-06] MEDS: MOM 30ML SUSPENSION UDC PO PRN (20:09)
[2019-12-06] MEDS: ACETAMINOPHEN TAB 650MG DOSE (2X325MG) PO PRN (20:10)
[2019-12-06] MEDS: LEVEMIR (INSULIN DETEMIR) 1 UNITS/0.01ML SC SCH (20:17)
[2019-12-07 06:00] VITALS: BP 114/59
[2019-12-07] MEDS: HumaLOG INSULIN (NovoLOG) PER UNIT SC SCH (07:30)
[2019-12-07] MEDS: APIXABAN 2.5 MG TAB (ELIQUIS) PO SCH (08:27)
[2019-12-07] MEDS: DOCUSATE SODIUM 100 MG CAP PO SCH (08:27)
[2019-12-07] MEDS ORDERED: ELIQ2.5T PO (11:09)
[2019-12-07] MEDS ORDERED: FLOM0.4C39 PO (11:09)
[2019-12-07] MEDS ORDERED: INSUDET SC (11:09)
--- NOTE | 2019-12-07 11:13 | IPNPDOC ---
Subjective Date Seen The patient was seen on 12/07/19. Subjective Chief Complaint/HPI doing well, no issues this am Objective Physical Examination General Exam: Positive: No Acute Distress Eye Exam: Positive: PERRLA; Negative: Sclera icteric ENT Exam: Positive: Atraumatic, Pharynx Normal; Negative: Pharyngeal Edema Neck Exam: Positive: Supple; Negative: JVD, thyromegaly Chest Exam: Positive: Clear to auscultation Heart Exam: Positive: Rate Normal, Normal S1, Normal S2 Abdomen Exam: Positive: Normal bowel sounds Male Exam: Negative: Tenderness Extremity Exam: Negative: Clubbing, Cyanosis, Edema Skin Exam: Positive: Nl turgor and temperature; Negative: Rash Neuro Exam: Positive: Normal Speech Psych Exam: Positive: Mood NL, Other (oriented to self only) Assessment /Plan Assessment # Altered mental status due to UTI - resolved, but has underlying dementia - seen by Dr. Urbina for competency eval on 11/25/2019, and declared medically incompetent # Urine Retention - flomax, straight cath prn - urology f/u as outpatient # UTI (Strep Gallolyticus) - augmentin day # 01/17 # Dementia - d/w PFS patient does have hx of dementia - b12, tsh, and B1 levels all normal - unable to do MRI because patient can not fill MRI pre-screen form due to dementia # CKD stage 3 - creat looks to be w/i his historical range - avoid nephrotoxins - repeat labs on 11/28 # Right renal mass noted on Renal ULS - reviewed CT abd/pelvis, needs outpatient f/u # Poorly controlled DM type 2 - continue NovoLog SS - decrease Levemir 14 units qhs - BG improved # Chronic a fib rate controlled - eliquis 2.5 mg po bid Dispo: SNF today Plan/VTE VTE Prophylaxis Ordered?: Yes (lovenox) VTE Exclusion Mechanical Proph: N/A:VTE Prophy Ordered VTE Exclusion Pharmacological: N/A:VTE Prophy Ordered VS, I&O, 24H, Fishbone Vital Signs/I&O Vital Signs Date Time Temp Pulse Resp B/P (MAP) Pulse Ox O2 Delivery O2 Flow Rate FiO2 12/07/19 06:00 98.7 60 17 114/59 (77) 98 Room Air I&O- Last 24 Hours up to 6 AM 12/07/19 06:00 Intake Total 1920 ml Output Total 200 ml Balance 1720 ml Laboratory Data 24H LABS Laboratory Tests 2 12/06/19 11:41: Bedside Glucose (Misc Panel) 243H 12/06/19 16:42: Bedside Glucose (Misc Panel) 162H 12/06/19 20:13: Bedside Glucose (Misc Panel) 211H 12/07/19 06:11: Bedside Glucose (Misc Panel) 80L SHANTHI HERMOSILLO MD Dec 07, 2019 11:13
--- NOTE | 2019-12-09 21:48 | DSES ---
DATE OF ADMISSION: 11/09/2019 DATE OF DISCHARGE: 12/07/2019 DISCHARGE DIAGNOSES: 1. Altered mental status secondary to septic encephalopathy associated with Streptococcus gallolyticus urinary tract infection. 2. Urinary retention. 3. Streptococcus gallolyticus urinary tract infection present on admission. 4. Alzheimer's dementia. 5. Chronic kidney disease, stage III. 6. Right renal mass noted on imaging studies done during this hospitalization suspicious for renal carcinoma. 7. Poorly controlled diabetes mellitus, type 2. 8. Chronic atrial fibrillation, rate controlled. 9. Noncompliance with anticoagulation. PROCEDURES PERFORMED DURING HOSPITALIZATION: None. CONSULTANTS ON THE CASE: Dr. Daphnie Urbina of psychiatry for competency evaluation. DISPOSITION: Patient is discharged to [facility]. LABORATORIES PENDING AT TIME OF DISCHARGE: None. CONDITION AT DISCHARGE: Stable, improved from admission. DISCHARGE INSTRUCTIONS: Patient is instructed to followup with physician. He is to followup with his primary care physician (PCP) also for discussion with his guardian to determine course of action in regard to evaluation of a renal mass noted on imaging. RELEVANT LABORATORIES: Blood cultures grew no growth during this hospitalization. Urine cultures grew Streptococcus gallolyticus, which was resistant to tetracycline and intermediate to clindamycin, sensitive to all other antibiotics. White count 6.6, hemoglobin 12.6, hematocrit 36.8, platelet count 317,000. Hemoglobin A1c was 10.9%. Sodium 137, potassium 4.2, chloride 103, bicarbonate 30, BUN 4, creatinine 1.2, calcium 8.6, glucose 95. TSH was 0.961. B12 was 723. Thiamine level was 142. Ammonia level was less than 10. IMAGING STUDIES OBTAINED DURING THE PATIENT'S HOSPITAL STAY: CT scan of the head, which showed no acute intracranial abnormalities. Please reference imaging report for details. Chest x-ray showed no acute pulmonary disease. Renal ultrasound, which showed solid mass in the upper pole of the right kidney concerning for renal neoplasm. Renal CT or MRI followup is recommended. Additional small cyst in the right kidney. Nonobstructing caliceal stones in the lower pole of the left kidney. No hydronephrosis. Probable calculus in the urinary bladder with some layering debris in the bladder lumen. Mildly echogenic right kidney suggesting chronic medical renal disease. CT of the abdomen and pelvis without contrast. Please reference report and imaging for details, but this shows a solid-appearing mass in the upper pole of the right kidney suspicious for renal cell carcinoma, cholelithiasis, large nonobstructing left renal calculus or calculi in the lower pole, enlarged left psoas muscle with surrounding induration and low attenuation, essentially suggestive of psoas abscess or possible residual intramuscular hematoma. There is no confluence of the left kidney and extension to the left inguinal canal insertion into the lesser trochanter. Large bladder calculus measuring 4.2 x 3.3 x 2.4 cm. There is a bladder wall thickening, reflect recent catheterization. Infection is not excluded. Mild prostatic enlargement. Large left inguinal hernia containing sigmoid colon, which is extends into the scrotum. No definitive obstruction or strangulation is seen. Colonic diverticulosis without diverticulitis. DISCHARGE MEDICATIONS: - Eliquis 2.5 mg twice a day - Levemir 14 units subcutaneous at bedtime - Flomax 0.8 mg at bedtime HOSPITAL COURSE: Mr. Irby is an elderly 79-year-old gentleman who lives alone. He was found in his home and brought to the emergency room by his neighbors, who found him to be more confused and disoriented than usual. On arrival, patient was noted to have acute kidney injury, and urinalysis was concerning for a urinary tract infection. He was empirically placed on antibiotics and hydrated with intravenous (IV) fluids. Renal ultrasound was obtained. This showed no evidence of urinary obstruction but did indicate that he had a renal mass in the upper pole of the right kidney. I attempted to do an MRI to further distinguish this; however, given his underlying Alzheimer's he was unable to complete the MRI form. In addition, patient has no living family members, and we could not get anyone to consent for him. Therefore, further imaging was not obtained. During this hospitalization, he did have issues with urinary retention and was placed on Flomax. He did not have any other issues and did require self-catheterizing at times. With treatment of his urinary tract infection (UTI), his altered mental status improved. He was seen by Dr. Urbina of psychiatry, who found him to be medically incompetent to make his decisions. Patient and family services (PFS) was consulted to start the process for guardianship. Patient was noted to be in chronic atrial fibrillation. He was resumed on Eliquis without complications. Patient was subsequently discharged to [facility] in stable condition. His hospital stay was prolonged given the need to start the process for guardianship and then to subsequently identify a mcc for him. A total of 30 minutes was spent completing all discharge paperwork.
== END 2019-12-07 11:45 | DRG 689 ==
LOC: M ED 15:45 → EDBD 15:45 → M ED INP 19:56 → ENRESERV 22:24 → M MS5PR 23:06
PROVIDERS: ADMIT Internal Medicine; ATTEND Internal Medicine
DX: N39.0 Urinary tract infection, site not specified (principal); G93.41 Metabolic encephalopathy; E87.1 Hypo-osmolality and hyponatremia; I48.20 Chronic atrial fibrillation, unspecified; N17.9 Acute kidney failure, unspecified; N18.3 Chronic kidney disease, stage 3 (moderate); E11.65 Type 2 diabetes mellitus with hyperglycemia; R41.82 Altered mental status, unspecified; D41.01 Neoplasm of uncertain behavior of right kidney; B95.4 Other streptococcus as the cause of diseases classified elsewhere; R50.9 Fever, unspecified; R33.9 Retention of urine, unspecified; N20.0 Calculus of kidney; N40.1 Benign prostatic hyperplasia with lower urinary tract symptoms; I25.9 Chronic ischemic heart disease, unspecified; K40.90 Unilateral inguinal hernia, without obstruction or gangrene, not specified as recurrent; N21.0 Calculus in bladder; G30.9 Alzheimer's disease, unspecified; F02.80 Dementia in other diseases classified elsewhere, unspecified severity, without behavioral disturbance, psychotic disturbance, mood disturbance, and anxiety; Z91.14 Patient's other noncompliance with medication regimen

== ENCOUNTER → 2020-01-10 | Outpatient (REF) | payer MEDICARE, MEDICAID ==
[~2020-01-10] MED LIST: ELIQ2.5T PO; FLOM0.4C39 PO; INSUDET SC
[2020-01-10 11:38] LABS: APPEARANCE, URINE HAZY (CLEAR); BACTERIA, URINE AUTO 3+ (NEGATIVE); BILIRUBIN, URINE AUTO NEGATIVE (NEGATIVE); BLOOD, URINE BLOOD NEGATIVE (NEGATIVE); COLOR, URINE YELLOW (YELLOW); GLUCOSE, URINE (UA) AUTO 3+ mg/dL (NEGATIVE); KETONE, URINE AUTO NEGATIVE (NEGATIVE); LEUKOCYTE ESTERASE, URINE AUTO 3+ (NEGATIVE); NITRITE, URINE AUTO NEGATIVE (NEGATIVE); PROTEIN, URINE AUTO NEGATIVE (NEGATIVE); RBC, URINE AUTO 42 /HPF (0-3); SPECIFIC GRAVITY URINE AUTO 1.003 (1.002-1.035); SQUAMOUS EPITHELIAL CELL UR AU 0 /HPF (0-6); UROBILINOGEN, URINE AUTO 0.2 mg/dL (0.0-2.0); WBC, URINE AUTO TNTC /HPF (0-3)
== END ==
LOC: SKLAB3 10:31
PROVIDERS: ATTEND Internal Medicine
DX: R50.9 Fever, unspecified (principal); R33.9 Retention of urine, unspecified

== ENCOUNTER → 2020-01-25 | Outpatient (REF) | LOC: SKLAB3 11:32 | PROVIDERS: ATTEND Internal Medicine | DX: Z03.818 Encounter for observation for suspected exposure to other biological agents ruled out (principal) ==

== ENCOUNTER → 2020-02-01 | Outpatient (REF) | payer MEDICARE, MEDICAID ==
[2020-02-01 10:14] LABS: HEMOGLOBIN A1c 8.7 %
[2020-02-01 13:25] LABS: APPEARANCE, URINE CLOUDY (CLEAR); BACTERIA, URINE AUTO 1+ (NEGATIVE); BILIRUBIN, URINE AUTO NEGATIVE (NEGATIVE); BLOOD, URINE BLOOD 1+ (NEGATIVE); COLOR, URINE YELLOW (YELLOW); GLUCOSE, URINE (UA) AUTO NEGATIVE (NEGATIVE); KETONE, URINE AUTO NEGATIVE (NEGATIVE); LEUKOCYTE ESTERASE, URINE AUTO 3+ (NEGATIVE); NITRITE, URINE AUTO NEGATIVE (NEGATIVE); PROTEIN, URINE AUTO NEGATIVE (NEGATIVE); RBC, URINE AUTO 62 /HPF (0-3); SPECIFIC GRAVITY URINE AUTO 1.006 (1.002-1.035); SQUAMOUS EPITHELIAL CELL UR AU 1 /HPF (0-6); UROBILINOGEN, URINE AUTO 0.2 mg/dL (0.0-2.0); WBC, URINE AUTO TNTC /HPF (0-3)
[2020-02-01 13:32] LABS: HEMATOCRIT 43.8 % (42.0-52.0); HEMOGLOBIN 15.3 g/dl (13.5-17.5); MEAN CORPUSCULAR HEMOGLOBIN 30.3 pg (27.0-33.0); MEAN CORPUSCULAR HGB CONC 34.9 g/dl (32.0-36.5); MEAN CORPUSCULAR VOLUME 86.7 fl (80.0-96.0); PLATELET COUNT, AUTOMATED 222 10^3/uL (150-450); RED BLOOD COUNT 5.05 10^6/uL (4.30-6.10); WHITE BLOOD COUNT 7.2 10^3/uL (4.0-10.0)
[2020-02-01 14:20] LABS: MALB URINE SIEMENS 57.9 MG/L; MAU/CREAT RATIO 105.2 MCG/MG (0.0-30.0)
[2020-02-01 15:00] LABS: CREATININE FOR GFR 1.5 MG/DL (0.70-1.30); GLOMERULAR FILTRATION RATE 47.9 (>35); POTASSIUM SERUM 4.2 MEQ/L (3.5-5.1)
== END ==
LOC: SKLAB3 07:00
PROVIDERS: ATTEND Internal Medicine
DX: E11.9 Type 2 diabetes mellitus without complications (principal); N18.9 Chronic kidney disease, unspecified; I12.9 Hypertensive chronic kidney disease with stage 1 through stage 4 chronic kidney disease, or unspecified chronic kidney disease; Z79.01 Long term (current) use of anticoagulants; Z87.442 Personal history of urinary calculi; N39.0 Urinary tract infection, site not specified

== ENCOUNTER → 2020-02-29 | Outpatient (REF) | payer MEDICARE, MEDICAID ==
[2020-02-29 08:58] LABS: HEMATOCRIT 41.3 % (42.0-52.0); HEMOGLOBIN 14.3 g/dl (13.5-17.5); MEAN CORPUSCULAR HEMOGLOBIN 30.6 pg (27.0-33.0); MEAN CORPUSCULAR HGB CONC 34.6 g/dl (32.0-36.5); MEAN CORPUSCULAR VOLUME 88.4 fl (80.0-96.0); PLATELET COUNT, AUTOMATED 187 10^3/uL (150-450); RED BLOOD COUNT 4.67 10^6/uL (4.30-6.10); WHITE BLOOD COUNT 6.6 10^3/uL (4.0-10.0)
[2020-02-29 14:26] LABS: CALCIUM LEVEL 9.2 MG/DL (8.8-10.2); CREATININE FOR GFR 1.42 MG/DL (0.70-1.30); GLOMERULAR FILTRATION RATE 51.1 (>35); POTASSIUM SERUM 4.1 MEQ/L (3.5-5.1)
[2020-02-29 14:58] LABS: APPEARANCE, URINE CLOUDY (CLEAR); BACTERIA, URINE AUTO 3+ (NEGATIVE); BILIRUBIN, URINE AUTO NEGATIVE (NEGATIVE); BLOOD, URINE BLOOD 2+ (NEGATIVE); COLOR, URINE YELLOW (YELLOW); GLUCOSE, URINE (UA) AUTO NEGATIVE (NEGATIVE); KETONE, URINE AUTO NEGATIVE (NEGATIVE); LEUKOCYTE ESTERASE, URINE AUTO 3+ (NEGATIVE); NITRITE, URINE AUTO NEGATIVE (NEGATIVE); PROTEIN, URINE AUTO NEGATIVE (NEGATIVE); RBC, URINE AUTO 35 /HPF (0-3); SPECIFIC GRAVITY URINE AUTO 1.009 (1.002-1.035); SQUAMOUS EPITHELIAL CELL UR AU 1 /HPF (0-6); UROBILINOGEN, URINE AUTO 0.2 mg/dL (0.0-2.0); WBC, URINE AUTO TNTC /HPF (0-3)
== END ==
LOC: SKLAB3 08:00
PROVIDERS: ATTEND Internal Medicine
DX: Z79.01 Long term (current) use of anticoagulants (principal); Z79.899 Other long term (current) drug therapy

== ENCOUNTER → 2020-04-20 | Outpatient (REF) | payer MEDICARE, MEDICAID ==
[2020-07-10 16:16] LABS: HEMOGLOBIN A1c 7.4 %; VITAMIN B12 LEVEL 628 PG/ML (247-911)
== END ==
LOC: SKLAB3 07:00
DX: R94.6 Abnormal results of thyroid function studies (principal); E05.90 Thyrotoxicosis, unspecified without thyrotoxic crisis or storm; Z79.4 Long term (current) use of insulin

== ENCOUNTER → 2020-05-23 | Outpatient (REF) | payer MEDICARE, MEDICAID ==
[2020-05-23 07:16] LABS: FREE T4 1.06 NG/DL (0.76-1.46); THYROID STIMULATING HORMONE 4.84 uIU/ML (0.358-3.740)
== END ==
LOC: SKLAB3 07:00
DX: R94.6 Abnormal results of thyroid function studies (principal)

== ENCOUNTER → 2020-06-06 | Outpatient (REF) | payer MEDICARE, MEDICAID ==
[2020-06-06 07:34] LABS: HEMOGLOBIN 15.8 g/dl (13.5-17.5); MEAN CORPUSCULAR HEMOGLOBIN 31.7 pg (27.0-33.0); MEAN CORPUSCULAR HGB CONC 35.9 g/dl (32.0-36.5); MEAN CORPUSCULAR VOLUME 88.2 fl (80.0-96.0); PLATELET COUNT, AUTOMATED 202 10^3/uL (150-450); RED BLOOD COUNT 4.99 10^6/uL (4.30-6.10); WHITE BLOOD COUNT 7.6 10^3/uL (4.0-10.0)
[2020-06-06 07:53] LABS: ALBUMIN 3.6 GM/DL (3.2-5.2); BILIRUBIN,TOTAL 0.8 MG/DL (0.2-1.0); CREATININE FOR GFR 1.37 MG/DL (0.70-1.30); GLOMERULAR FILTRATION RATE 53.2 (>35); TOTAL PROTEIN 7.1 GM/DL (6.4-8.2)
== END ==
LOC: SKLAB3 07:00
DX: E11.9 Type 2 diabetes mellitus without complications (principal); F03.90 Unspecified dementia, unspecified severity, without behavioral disturbance, psychotic disturbance, mood disturbance, and anxiety

== ENCOUNTER → 2020-07-04 | Outpatient (REF) | payer MEDICARE, MEDICAID ==
[2020-07-04 09:13] LABS: FREE T4 1.04 NG/DL (0.76-1.46); THYROID STIMULATING HORMONE 3.45 uIU/ML (0.358-3.740)
== END ==
LOC: SKLAB3 07:00
DX: E11.9 Type 2 diabetes mellitus without complications (principal); R94.6 Abnormal results of thyroid function studies

== ENCOUNTER → 2020-07-06 | Outpatient (REF) | payer MEDICARE, MEDICAID | LOC: SKLAB2 07:06 → SKLAB3 09:01 | DX: E03.9 Hypothyroidism, unspecified (principal) ==

== ENCOUNTER → 2020-07-27 | Outpatient (REF) | LOC: SKLAB3 11:45 | DX: Z20.828 Contact with and (suspected) exposure to other viral communicable diseases (principal) ==

== ENCOUNTER → 2020-08-02 | Outpatient (REF) | payer MEDICARE, MEDICAID | LOC: SKLAB3 08-01 14:16 → EDSTATUS 08-24 14:27 | PROVIDERS: ATTEND Internal Medicine | DX: Z20.828 Contact with and (suspected) exposure to other viral communicable diseases (principal) ==

== ENCOUNTER → 2020-08-09 | Outpatient (REF) | payer MEDICARE, MEDICAID | LOC: SKLAB3 08:00 | PROVIDERS: ATTEND Internal Medicine | DX: Z20.828 Contact with and (suspected) exposure to other viral communicable diseases (principal) ==

== ENCOUNTER → 2020-08-16 | Outpatient (REF) | payer MEDICARE, MEDICAID | LOC: SKLAB3 08:00 | PROVIDERS: ATTEND Internal Medicine | DX: Z20.828 Contact with and (suspected) exposure to other viral communicable diseases (principal) ==

== ENCOUNTER → 2020-08-23 | Outpatient (REF) | payer MEDICARE, MEDICAID | LOC: SKLAB3 07:15 | DX: Z20.828 Contact with and (suspected) exposure to other viral communicable diseases (principal) ==

== ENCOUNTER → 2020-08-30 | Outpatient (REF) | payer MEDICARE, MEDICAID | LOC: SKLAB3 10:26 | DX: Z20.828 Contact with and (suspected) exposure to other viral communicable diseases (principal) ==

== ENCOUNTER → 2020-09-06 | Outpatient (REF) | payer MEDICARE, MEDICAID | LOC: SKLAB3 07:00 | DX: Z20.828 Contact with and (suspected) exposure to other viral communicable diseases (principal) ==

== ENCOUNTER → 2020-09-13 | Outpatient (REF) | payer MEDICARE, MEDICAID | LOC: SKLAB3 07:00 | DX: Z20.828 Contact with and (suspected) exposure to other viral communicable diseases (principal) ==

== ENCOUNTER → 2020-09-20 | Outpatient (REF) | payer MEDICARE, MEDICAID | LOC: SKLAB3 10:02 | PROVIDERS: ATTEND Internal Medicine | DX: Z20.822 Contact with and (suspected) exposure to COVID-19 (principal) ==

== ENCOUNTER → 2020-09-27 | Outpatient (REF) | payer MEDICARE, MEDICAID | LOC: SKLAB3 07:00 | PROVIDERS: ATTEND Internal Medicine | DX: Z11.52 Encounter for screening for COVID-19 (principal) ==

== ENCOUNTER → 2020-10-03 | Outpatient (REF) | payer MEDICARE, MEDICAID ==
[2020-10-03 10:25] LABS: HEMATOCRIT 43.2 % (42.0-52.0); HEMOGLOBIN 14.7 g/dl (13.5-17.5); MEAN CORPUSCULAR HEMOGLOBIN 30.2 pg (27.0-33.0); MEAN CORPUSCULAR VOLUME 88.9 fl (80.0-96.0); PLATELET COUNT, AUTOMATED 178 10^3/uL (150-450); RED BLOOD COUNT 4.86 10^6/uL (4.30-6.10); WHITE BLOOD COUNT 6.4 10^3/uL (4.0-10.0)
== END ==
LOC: SKLAB3 07:00
DX: Z79.01 Long term (current) use of anticoagulants (principal)

== ENCOUNTER → 2020-10-04 | Outpatient (REF) | payer MEDICARE, MEDICAID | LOC: SKLAB3 06:43 | PROVIDERS: ATTEND Internal Medicine | DX: Z20.822 Contact with and (suspected) exposure to COVID-19 (principal) ==

== ENCOUNTER → 2020-10-11 | Outpatient (REF) | payer MEDICARE, MEDICAID | LOC: SKLAB3 15:04 | PROVIDERS: ATTEND Internal Medicine | DX: Z20.822 Contact with and (suspected) exposure to COVID-19 (principal) ==

== ENCOUNTER → 2020-10-18 | Outpatient (REF) | payer MEDICARE, MEDICAID | LOC: SKLAB3 07:00 | PROVIDERS: ATTEND Internal Medicine | DX: Z11.52 Encounter for screening for COVID-19 (principal) ==

== ENCOUNTER → 2020-10-25 | Outpatient (REF) | payer MEDICARE, MEDICAID | LOC: SKLAB3 11:34 | PROVIDERS: ATTEND Internal Medicine | DX: Z20.822 Contact with and (suspected) exposure to COVID-19 (principal) ==

== ENCOUNTER → 2020-10-31 | Outpatient (REF) | payer MEDICARE, MEDICAID ==
[2020-10-31 11:25] LABS: HEMOGLOBIN A1c 7.6 %
== END ==
LOC: SKLAB3 07:04
DX: E11.9 Type 2 diabetes mellitus without complications (principal)

== ENCOUNTER → 2020-11-01 | Outpatient (REF) | payer MEDICARE, MEDICAID | LOC: SKLAB3 07:00 | PROVIDERS: ATTEND Internal Medicine | DX: Z20.822 Contact with and (suspected) exposure to COVID-19 (principal) ==

== ENCOUNTER → 2020-11-08 | Outpatient (REF) | payer MEDICARE, MEDICAID | LOC: SKLAB3 07:00 | PROVIDERS: ATTEND Internal Medicine | DX: Z20.822 Contact with and (suspected) exposure to COVID-19 (principal) ==

== ENCOUNTER → 2020-11-22 | Outpatient (REF) | payer MEDICARE, MEDICAID | LOC: SKLAB3 14:23 | PROVIDERS: ATTEND Internal Medicine | DX: Z20.822 Contact with and (suspected) exposure to COVID-19 (principal) ==

== ENCOUNTER → 2020-11-28 | Outpatient (REF) | payer MEDICARE, MEDICAID ==
[2020-11-28 08:53] LABS: ALBUMIN 3.3 GM/DL (3.2-5.2); BILIRUBIN,TOTAL 0.8 MG/DL (0.2-1.0); CALCIUM LEVEL 8.6 MG/DL (8.8-10.2); CREATININE FOR GFR 1.32 MG/DL (0.70-1.30); GLOMERULAR FILTRATION RATE 55.4 (>35); POTASSIUM SERUM 3.9 MEQ/L (3.5-5.1); TOTAL PROTEIN 6.5 GM/DL (6.4-8.2)
== END ==
LOC: SKLAB3 07:00
DX: E11.9 Type 2 diabetes mellitus without complications (principal); Z79.01 Long term (current) use of anticoagulants

== ENCOUNTER → 2020-11-29 | Outpatient (REF) | payer MEDICARE, MEDICAID | LOC: SKLAB3 15:11 | PROVIDERS: ATTEND Internal Medicine | DX: Z20.822 Contact with and (suspected) exposure to COVID-19 (principal) ==

== ENCOUNTER → 2020-12-15 | Outpatient (REF) | payer MEDICARE, MEDICAID | LOC: SKLAB3 09:44 | PROVIDERS: ATTEND Internal Medicine | DX: Z20.822 Contact with and (suspected) exposure to COVID-19 (principal) ==

== ENCOUNTER → 2021-01-01 | Outpatient (REF) | payer MEDICARE, MEDICAID ==
[2021-01-01 14:37] LABS: HEMATOCRIT 44.6 % (42.0-52.0); HEMOGLOBIN 15.9 g/dl (13.5-17.5); MEAN CORPUSCULAR HEMOGLOBIN 31.4 pg (27.0-33.0); MEAN CORPUSCULAR HGB CONC 35.7 g/dl (32.0-36.5); MEAN CORPUSCULAR VOLUME 88.1 fl (80.0-96.0); PLATELET COUNT, AUTOMATED 228 10^3/uL (150-450); RED BLOOD COUNT 5.06 10^6/uL (4.30-6.10); WHITE BLOOD COUNT 11.5 10^3/uL (4.0-10.0)
--- NOTE | 2021-01-01 14:49 | REP ---
INDICATION: EPIGASTRIC PAIN COMPARISON: None. TECHNIQUE: Supine view of the abdomen and pelvis. FINDINGS: Bowel gas pattern is nonspecific and without obstruction or perforation. Bowel extends below the left hemipelvis consistent and concerning for groin hernia. No organomegaly. Calcifications in the left mid abdomen suggest nephroliths. Large rounded calcification in the pelvis is consistent with bladder stone. Skeletal structures demonstrate age-related degenerative changes. IMPRESSION: Left renal calculi and large bladder stone. Groin hernia. <Electronically signed by Alhaji Valentine > 01/01/21 [id number]
--- NOTE | 2021-01-01 14:52 | REP ---
INDICATION: SOB COMPARISON: 11/09/2019 TECHNIQUE: Portable AP view of the chest FINDINGS: The mediastinum and cardiac silhouette are stable and within normal limits for portable technique. Subtle ill-defined airspace disease along the periphery of the right lower lung zone cannot be excluded and should be correlated with physical examination and auscultation. Remainder of lung valdivia are clear. Skeletal structures are intact. IMPRESSION: Cannot exclude subtle airspace disease along the lateral right lower lung zone. <Electronically signed by Alhaji Valentine > 01/01/21 [id number]
[2021-01-01 15:06] LABS: ALBUMIN 3.5 GM/DL (3.2-5.2); ALT/SGPT 21 U/L (12-78); BILIRUBIN,TOTAL 1.3 MG/DL (0.2-1.0); BLOOD UREA NITROGEN 19 MG/DL (7-18); CALCIUM LEVEL 9.3 MG/DL (8.8-10.2); CARBON DIOXIDE LEVEL 22 MEQ/L (21-32); CHLORIDE LEVEL 102 MEQ/L (98-107); CK-MB VALUE MASS < 1.0 NG/ML (<3.6); CPK CREATINE PHOSPHOKINASE 39 U/L (39-308); CREATININE FOR GFR 1.54 MG/DL (0.70-1.30); GLOMERULAR FILTRATION RATE 46.4 (>35); GLUCOSE, FASTING 235 MG/DL (70-100); MB/CK RELATIVE INDEX 2.56 (< OR =4); SODIUM LEVEL 137 MEQ/L (136-145); TOTAL PROTEIN 6.8 GM/DL (6.4-8.2); TROPONIN I < 0.02 NG/ML (< 0.10)
[2021-01-01 16:40] LABS: APPEARANCE, URINE CLEAR (CLEAR); BACTERIA, URINE AUTO NEGATIVE (NEGATIVE); BILIRUBIN, URINE AUTO NEGATIVE (NEGATIVE); BLOOD, URINE BLOOD NEGATIVE (NEGATIVE); COLOR, URINE YELLOW (YELLOW); GLUCOSE, URINE (UA) AUTO 1+ mg/dL (NEGATIVE); KETONE, URINE AUTO TRACE mg/dL (NEGATIVE); LEUKOCYTE ESTERASE, URINE AUTO NEGATIVE (NEGATIVE); NITRITE, URINE AUTO NEGATIVE (NEGATIVE); PROTEIN, URINE AUTO NEGATIVE (NEGATIVE); RBC, URINE AUTO 2 /HPF (0-3); SPECIFIC GRAVITY URINE AUTO 1.012 (1.002-1.035); SQUAMOUS EPITHELIAL CELL UR AU 1 /HPF (0-6); WBC, URINE AUTO 4 /HPF (0-3)
== END ==
LOC: SKLAB3 13:48
DX: N21.0 Calculus in bladder (principal); N20.0 Calculus of kidney; K40.90 Unilateral inguinal hernia, without obstruction or gangrene, not specified as recurrent; R06.02 Shortness of breath; R10.13 Epigastric pain

== ENCOUNTER → 2021-01-02 | Outpatient (REF) | payer MEDICARE, MEDICAID ==
[2021-01-02 09:35] LABS: HEMATOCRIT 42.8 % (42.0-52.0); HEMOGLOBIN 14.9 g/dl (13.5-17.5); MEAN CORPUSCULAR HEMOGLOBIN 31.1 pg (27.0-33.0); MEAN CORPUSCULAR HGB CONC 34.8 g/dl (32.0-36.5); MEAN CORPUSCULAR VOLUME 89.4 fl (80.0-96.0); PLATELET COUNT, AUTOMATED 212 10^3/uL (150-450); RED BLOOD COUNT 4.79 10^6/uL (4.30-6.10); WHITE BLOOD COUNT 11.9 10^3/uL (4.0-10.0)
[2021-01-02 10:13] LABS: CALCIUM LEVEL 8.4 MG/DL (8.8-10.2); CREATININE FOR GFR 1.47 MG/DL (0.70-1.30); GLOMERULAR FILTRATION RATE 48.9 (>35); POTASSIUM SERUM 3.6 MEQ/L (3.5-5.1)
== END ==
LOC: SKLAB3 11:48
DX: Z79.01 Long term (current) use of anticoagulants (principal)

== ENCOUNTER → 2021-01-03 | Outpatient (REF) | payer MEDICARE, MEDICAID ==
[2021-01-03 09:29] LABS: HEMATOCRIT 43.3 % (42.0-52.0); HEMOGLOBIN 14.9 g/dl (13.5-17.5); MEAN CORPUSCULAR HEMOGLOBIN 30.8 pg (27.0-33.0); MEAN CORPUSCULAR HGB CONC 34.4 g/dl (32.0-36.5); MEAN CORPUSCULAR VOLUME 89.5 fl (80.0-96.0); PLATELET COUNT, AUTOMATED 208 10^3/uL (150-450); RED BLOOD COUNT 4.84 10^6/uL (4.30-6.10); WHITE BLOOD COUNT 11.8 10^3/uL (4.0-10.0)
[2021-01-03 09:57] LABS: CALCIUM LEVEL 8.5 MG/DL (8.8-10.2); CREATININE FOR GFR 1.43 MG/DL (0.70-1.30); GLOMERULAR FILTRATION RATE 50.5 (>35); POTASSIUM SERUM 3.4 MEQ/L (3.5-5.1)
== END ==
LOC: SKLAB3 08:00
DX: E86.0 Dehydration (principal)